=== PATIENT | male | born 1945 | race Caucasian/White ===

== ENCOUNTER 2016-09-29 14:23 | Inpatient (IN) | payer OTHER ==
[~2016-09-29] VITALS: Ht 185.4 cm; Wt 81.6 kg
[~2016-09-29 14:23] MED LIST: PRAVACHOL40 M1 PO; SENSIPAR30 M1 PO
[2016-09-29] MEDS ORDERED: ASPIRIN81 M4 PO (15:15)
[2016-09-29] MEDS ORDERED: NAMENDA XR28 M1 PO (15:16)
[2016-09-29] MEDS ORDERED: SERTRALINE HCL50 MG PO (15:17)
[2016-09-29] MEDS ORDERED: MIRTAZAPINE7.5 M1 PO (15:17)
[2016-09-29] MEDS ORDERED: TRAZODONE HCL50 M1 PO (15:17)
[2016-09-29] MEDS ORDERED: MELATONIN5 M7 PO (15:18)
[2016-09-29] MEDS ORDERED: MEN'S MULTI-VI1 EACH PO (15:18)
--- NOTE | 2016-09-29 15:29 | ED INFLUENZA/URI COMPLAINT ---
History of Present Illness General Chief Complaint: Upper Respiratory Sx/Fever Stated Complaint: ?URI Source: patient, family Exam Limitations: dementia Allergies Coded Allergies: NO KNOWN ALLERGIES (06/05/12) Reconcile Medications Melatonin 5 MG TABLET 1 TAB PO QPM SLEEP (Reported) Memantine HCl (Namenda XR) 28 MG CAP.SPR.24 1 CAP PO DAILY DEMENTIA (Reported ) Mirtazapine 7.5 MG TABLET 1 TAB PO DAILY DEPRESSION (Reported) Multivitamin (Men's Multi-Vitamin) 1 EACH TABLET 1 TAB PO DAILY SUPPLEMENT ( Reported) Sertraline HCl 50 MG TABLET 1 TAB PO DAILY MENTAL HEALTH (Reported) Trazodone HCl 50 MG TABLET 1 TAB PO QPM PRN SLEEP (Reported) Triage Note: 71 Y/O MALE BIBA FROM HOME FOR WORSNING URI AND DIFFICULTY BREATHING. PER DIRECTOR OF CAPITAL GIVING PT HAS HAD INCREASING URI. PT ARRIVES A/OX2 BUT NOTED TO BE VERY DROWSY BUT AROUSABLE. PT ALSO NOTED TO BE ST AT 115, VERY AUDIBLE RHONCHI NOTED BUT DENIES ANY OTHER COMPLAINTS. PT PER DIRECTOR OF CAPITAL GIVING HAS HX OR ALZHIEMERS. PT ALSO HAS A FEVER OF 101.6 Triage Nurses Notes Reviewed? yes HPI: This patient is a 71-year-old male with a past medical history including Alzheimer's disease, colon cancer, and hypertension who was brought into the emergency department today for evaluation of upper respiratory symptoms. The patient was a poor historian given her underlying dementia. He did report that he is having a difficult time breathing and feeling slightly nauseous. The patient's family member reported that over the last week he has had a cold with chest congestion and runny nose. She denied noticing any fevers. However, over the last couple of days his breathing has gotten worse and she reported that he has been complaining of difficulty breathing. He has been febrile today with a nonproductive cough. No vomiting, abdominal pain, diarrhea, or chest pain. (CHINTAN VARGAS,RO) Vital Signs & Intake/Output Vital Signs & Intake/Output Vital Signs Date Time Temp Pulse Resp B/P Pulse O2 O2 Flow FiO2 Ox Delivery Rate 09/30 1452 97.6 97 20 144/84 94 Room Air 09/30 1139 Nasal 2.0L Cannula 09/30 0800 Nasal 2.0L Cannula 09/30 0708 97.1 86 18 148/77 96 Nasal 2.0L Cannula 09/30 0000 Nasal 2.0L Cannula 09/29 2311 Nasal 2.0L Cannula 09/29 2203 96.5 119 20 140/72 97 Nasal 2.0L Cannula 09/29 2012 100.3 103 22 149/71 95 Nasal 2.0L Cannula 09/29 2004 95 Nasal 2.0L Cannula 09/29 1823 100.6 ED Intake and Output 09/30 0000 09/29 1200 Intake Total 1000 Output Total 300 Balance 700 Intake, IV 1000 Output, Urine 300 Patient 180 lb Weight Past History Travel History Traveled to [place] past 21 day No Medical History Any Pertinent Medical History? 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 No (RO WOODSON PA-C) Review of Systems Review of Systems Constitutional: Reports: see HPI. EENTM: Reports: see HPI. Respiratory: Reports: see HPI. Cardiovascular: Reports: no symptoms. GI: Reports: see HPI. Genitourinary: Reports: no symptoms. Musculoskeletal: Reports: no symptoms. Skin: Reports: no symptoms. Neurological/Psychological: Reports: no symptoms. All Other Systems: Reviewed and Negative (RO WOODSON PA-C) Physical Exam Physical Exam Ears, Nose, Throat: moist mucous membrane, hearing grossly normal, pharynx normal, nasal congestion, nasal drainage Comments: Well-developed well-nourished person in mild distress HEENT: Moist mucous membranes, head normocephalic Pupils equally round and reactive to light. Neck: Supple, no lymphadenopathy Back: Normal inspection Cardiovascular: Regular rate and rhythm with no murmurs, rubs or gallops. No carotid bruits appreciated. No JVD Respiratory: Chest nontender. Scattered rhonchi heard throughout all lung yu. Abdomen: Soft, nontender and nondistended. No organomegaly. Normoactive bowel sounds Extremity: No edema, no calf tenderness to palpation, normal and equal pulses. Neuro: Alert and oriented to person, cranial nerves II through XII grossly intact. Skin: No appreciable rash on exposed skin, skin is warm and dry. Psych: Mood and affect is normal Core Measures Severe Sepsis Present: No Septic Shock Present: No (CHINTAN VARGAS,RO) Progress Differential Diagnosis: influenza, meningitis, neutropenia, otitis, pneumonia, pharyngitis, sinusitis Diagnostic Imaging: Viewed by Me: Radiology Read, CT Scan. Discussed w/RAD: Radiology Read, CT Scan. Radiology Impression: PATIENT: ALBINO CHAMPION PRESENT AGE: 71 PATIENT ACCOUNT NO: [id number] : 44 LOCATION: ER ORDERING PHYSICIAN: RO WOODSON PA-C SERVICE DATE: 09/29/16 EXAM TYPE: RAD - XRY-CHEST XRAY, PA AND LATERAL EXAMINATION: XR CHEST CLINICAL INFORMATION: Cough. COMPARISON: Chest x-ray 11/26/2015, 11/20/2014 TECHNIQUE: 2 views of the chest were obtained. FINDINGS: Chronic increased lung markings. There are multiple small nodular opacities over the right upper lobe on the AP view of the chest which are new since prior chest x-ray. No focal consolidation. No pleural effusion. Prominence of the right hilum similar to prior chest x-ray. Heart size is normal. IMPRESSION: Multiple small nodular opacities in the right upper lobe new since prior chest x-ray. CT of chest would be helpful for further assessment. DICTATED BY: JIMMY HOWARD MD DATE/TIME DICTATED:09/29/161603 SERVICES CLERK:FINN DATE/TIME TRANSCRIBED:09/29/161603 CONFIDENTIAL, DO NOT COPY WITHOUT APPROPRIATE AUTHORIZATION. <Electronically signed in Other Vendor System> SIGNED BY: JIMMY HOWARD MD 09/29/161611, PATIENT: ALBINO CHAMPION PRESENT AGE: 71 PATIENT ACCOUNT NO: [id number] : 44 LOCATION: [facility] ORDERING PHYSICIAN: RO WOODSON PA-C SERVICE DATE: 09/29/16 EXAM TYPE: CAT - CTA CHEST-PULMONARY EMBOLISM EXAMINATION: CT ANGIOGRAM OF THE CHEST WITH AND WITHOUT CONTRAST (CT PULMONARY ANGIOGRAM FOR PE) CLINICAL INFORMATION: Cough, congestion, febrile. Abnormal chest x-ray today. COMPARISON: Chest x-ray 09/29/2016. PET/CT 07/12/2006. CT chest 2005. TECHNIQUE: Prior to contrast administration, noncontrast localization images were obtained. Subsequently, multidetector volumetric imaging was performed from the thoracic inlet to below the diaphragms following the administration of 95 mL Optiray 350 intravenous contrast. No contrast reaction reported. Sagittal, coronal, and MIP oblique sagittal reformatted images were obtained on the CT workstation, uploaded to PACS, and reviewed. DLP: 554.78 mGy- cm FINDINGS: QUALITY OF STUDY/CONTRAST BOLUS: Satisfactory. PULMONARY ARTERIES: No central or segmental pulmonary emboli. THORACIC AORTA: No aneurysm or dissection. There are scattered vascular wall calcifications of thoracic aorta. LUNG: There is emphysematous lucency of lungs. This primarily affects the upper lobes left greater than right. There is parenchymal architectural deformity with increased lung markings primarily effecting upper lobes. There is mild swirling of the hilar bronchovascular structures at the upper lobe from this architectural deformity. The nodular opacities noted over the right upper lobe on the chest x-ray today is likely due to indolent vessels from this lung deformity. There is a small focus of consolidation at the medial right upper lobe, axial image 120 (2) that is unchanged since the PET/CT exam of 07/12/2006. This is consistent with an area of scarring. There is a new patchy parenchymal opacity in the peripheral left upper lobe, coronal image 60 (202), axial image 171 (2). This is new since prior CAT scan of 07/12/2006 concerning for a new infiltrate. The patchy peripheral ground-glass opacities primarily in lower lobes bilateral are unchanged since the CAT scan of 07/12/2006. On recent chest x-ray the right mary was asymmetrically prominent. This is related to the normal right hilar vessels and the parenchymal deformity of lung from the emphysematous changes. PLEURA: No pleural effusion or pneumothorax. MEDIASTINUM: Normal heart size. No pericardial effusion. No hilar or mediastinal lymphadenopathy. No evidence of septal bowing or right heart strain. CHEST WALL/AXILLA: No axillary or internal mammary lymphadenopathy. OSSEOUS STRUCTURES: No acute or suspicious osseous abnormality. UPPER ABDOMEN: Unremarkable. No reflux of contrast into the hepatic veins to suggest elevated right heart pressures. There is a 3.4 cm splenule adjacent to the inferior splenic margin. IMPRESSION: 1. No evidence of pulmonary embolism. 2. Marked emphysematous changes of lung with underlying parenchymal architectural deformity primarily affecting the upper lobes. 2. Patchy peripheral opacity in left upper lobe concerning for an acute infiltrate. VTE: Negative. DICTATED BY: JIMMY HOWARD MD DATE/TIME DICTATED:09/29/161746 SERVICES CLERK:FINN DATE/TIME TRANSCRIBED:09/29/161746 CONFIDENTIAL, DO NOT COPY WITHOUT APPROPRIATE AUTHORIZATION. <Electronically signed in Other Vendor System> SIGNED BY: JIMMY HOWARD MD 09/29/16 1828 Initial ED EKG: normal axis, normal intervals, no ST T wave changes, 117 bpm Comments: 09/29/2016 4:49:42 PM: Dr. Lopez currently the patient's bedside for [id number] evaluation. (CHINTAN VARGAS,RO) Plan of Care: Orders Procedure Date/time Status Regular Diet 09/30 B Active Change service to 09/30 1155 Active RT: Evaluation 09/30 1135 Active CBC WITHOUT DIFFERENTIAL 09/30 06 Complete BASIC ELECTROLYTES PLUS BUN&CR 09/30 0600 Complete THERAPIST ORDERS 09/30 UNK Complete OXYGEN SETUP (GEN) 09/30 UNK Complete PT Evaluate & Treat 09/30 UNK Active Therapeutic Activities 09/30 UNK Complete PT EVAL LOW COMPLEX 20 MIN 09/30 UNK Complete Gait Training 09/30 UNK Complete Nursing Misc 09/30 UNK Active URINALYSIS 09/29 2230 Complete Vital Signs 09/29 221 Active Teach/Educate 09/29 2212 Active Pain Treatment and Response 09/29 2212 Active Nutritional Intake, Monitor 09/29 2212 Active Isolation 09/29 2212 Active Intake & Output 09/29 221 Active Patient Care Conference 09/29 221 Active Activity/Ambulation 09/29 2212 Active Saline Lock 09/29 2013 Active Pathway - chart 09/29 2013 Active House Staff 09/29 2013 Active TRC EVALUATION (GEN) 09/29 1946 Complete Admit to inpatient 09/29 191 Active Vital Signs 09/29 191 Active Code Status 09/29 191 Active Patient Data 09/29 1900 Active VIRAL CULTURE 09/29 1530 Active Intake & Output 09/29 1445 Active Current Medications Sig/[place] Start time Last Medication Dose Stop Time Status Admin Albuterol Sulfate 3 ML EVERY 4 HRS/AWAKE 09/30 1200 AC (Proventil) Ondansetron HCl 4 MG ONCE ONE 09/30 299 CAN (Zofran) 09/30 030 Trazodone HCl 50 MG AT BEDTIME NEED.. 09/29 2129 AC (Desyrel) Acetaminophen 650 MG Q6P PRN 09/29 2014 AC (Tylenol) Ketorolac 15 MG Q6P PRN 09/29 2014 AC Tromethamine (Toradol) Morphine Sulfate 2 MG Q4P PRN 09/29 2014 AC (Morphine) Ondansetron HCl 4 MG Q6P PRN 09/29 2014 AC (Zofran) Laboratory Tests 09/30/16 0705: Anion Gap 7, Estimated GFR > 60, BUN/Creatinine Ratio 13.0, CBC w Diff NO MAN DIFF REQ, RBC 4.67 L, MCV 88.4, MCH 29.0, RDW 13.7, MPV 8.5, Gran % 86.6 H, Lymphocytes % 6.8 L, Monocytes % 5.9, Eosinophils % 0.7, Basophils % 0 L, Absolute Granulocytes 12.6 H, Absolute Lymphocytes 1.0 L, Absolute Monocytes 0.9 H, Absolute Eosinophils 0.1, Absolute Basophils 0, PUBS MCHC 32.8 L 09/30/16 0000: Urine Color STRAW, Urine Clarity CLEAR, Urine pH 7.0, Ur Specific [place] 1.010, Urine Protein NEG, Urine Ketones NEG, Urine Nitrite NEG, Urine Bilirubin NEG, Urine Urobilinogen 0.2, Ur Leukocyte Esterase NEG, Ur Microscopic EXAM NOT REQUIRED, Urine Hemoglobin NEG, Urine Glucose NEG 09/29/16 1816: Lactic Acid 0.9 Microbiology 09/29 2229 URINE ROUT: Legionella Antigen - CAN Cancelled: SPECIMEN NOT RECEIVED IN LABORATORY 09/29 2229 URINE ROUT: Streptococcus pneumoniae Antigen (M - CAN Cancelled: SPECIMEN NOT RECEIVED IN LABORATORY 09/29 2229 LOWER RESP: Respiratory Culture - CAN Cancelled: SPECIMEN NOT RECEIVED IN LABORATORY 09/29 2229 LOWER RESP: Gram Stain - CAN Cancelled: SPECIMEN NOT RECEIVED IN LABORATORY 09/29 1838 NASOPHARYN: Influenza Virus A & B Rapid Smear - COMP Departure Departure Disposition: STILL A PATIENT Condition: Stable Clinical Impression Primary Impression: Pneumonia Qualifiers: Pneumonia type: due to unspecified organism Laterality: right Lung location: unspecified part of lung Qualified Code: J18.9 - Pneumonia, unspecified organism Secondary Impressions: Sepsis Qualifiers: Sepsis type: sepsis due to unspecified organism Qualified Code: A41.9 - Sepsis, unspecified organism Referrals: CESAR ARAUJO MD (PCP/Family) Departure Forms: Customer Survey General Discharge Information Admission Note Spoke With: LYUBOV SOLO MD Documentation of Exam: Documentation of any treatments & extenuating circumstances including Concerns Regarding Discharge (functional status, medication knowledge or non-compliance, living conditions, etc.) that warrant an admission rather than observation: [ This patient is a 71-year-old male with past medical history including dementia who presented to the emergency department today for evaluation of upper respiratory symptoms. Left lobe pneumonia seen on CT of the chest. White blood cell count of 18. Lactic acid of 2.8. This patient should be admitted to general medicine for IV fluids, IV antibiotics, pulmonology consultation, trend labs, PT consultation, and close monitoring. Premature discharge could prove medically harmful.] (CHINTAN VARGAS,RO) PA/CLERICAL ASSIGNER Co-Sign Statement Statement: ED Attending supervision documentation- [X] I saw and evaluated the patient. I have also reviewed all the pertinent lab results and diagnostic results. I agree with the findings and the plan of care as documented in the PA's/CLERICAL ASSIGNER's documentation. [] I have reviewed the ED Record and agree with the PA's/CLERICAL ASSIGNER's documentation. [] Additions or exceptions (if any) to the PAs/CLERICAL ASSIGNER's note and plan are summarized below: [] (NEHEMIAH LOPEZ DO)
[2016-09-29 15:30] LABS: ABSOLUTE BASOPHIL COUNT 0.1 /CUMM (0.0-0.2); ABSOLUTE EOSINOPHIL COUNT 0 /CUMM (0.0-0.7); ABSOLUTE GRANULOCYTE CT 16.9 /CUMM (1.4-6.5); ABSOLUTE LYMPH COUNT 0.8 /CUMM (1.2-3.4); ABSOLUTE MONOCYTE COUNT 0.6 /CUMM (0.10-0.60); BASOPHIL % 0.7 % (0.0-2.0); EOSINOPHIL % 0.2 % (0-5); GRANULOCYTE % 91.7 % (42.2-75.2); HEMATOCRIT 46.6 % (42-52); MEAN CORPUSCULAR HGB 29.3 PG (27.0-31.0); MEAN CORPUSCULAR HGB CONC 33.3 G/DL (33.0-37.0); MEAN PLATELET VOLUME 8.4 FL (7.4-10.4); PLATELET COUNT 286 /CUMM (130-400); RBC DISTRIBUTION WIDTH 13.3 % (11.5-14.5); RED BLOOD CELL CT 5.29 /CUMM (4.70-6.10); WHITE BLOOD CELL COUNT 18.5 /CUMM (4.8-10.8)
--- NOTE | 2016-09-29 16:12 | RADIOLOGY REPORT ---
EXAMINATION: XR CHEST CLINICAL INFORMATION: Cough. COMPARISON: Chest x-ray 11/26/2015, 11/20/2014 TECHNIQUE: 2 views of the chest were obtained. FINDINGS: Chronic increased lung markings. There are multiple small nodular opacities over the right upper lobe on the AP view of the chest which are new since prior chest x-ray. No focal consolidation. No pleural effusion. Prominence of the right hilum similar to prior chest x-ray. Heart size is normal. IMPRESSION: Multiple small nodular opacities in the right upper lobe new since prior chest x-ray. CT of chest would be helpful for further assessment.
--- NOTE | 2016-09-29 18:28 | CT SCAN REPORT ---
EXAMINATION: CT ANGIOGRAM OF THE CHEST WITH AND WITHOUT CONTRAST (CT PULMONARY ANGIOGRAM FOR PE) CLINICAL INFORMATION: Cough, congestion, febrile. Abnormal chest x-ray today. COMPARISON: Chest x-ray 09/29/2016. PET/CT 07/12/2006. CT chest 07/14/2006. TECHNIQUE: Prior to contrast administration, noncontrast localization images were obtained. Subsequently, multidetector volumetric imaging was performed from the thoracic inlet to below the diaphragms following the administration of 95 mL Optiray 350 intravenous contrast. No contrast reaction reported. Sagittal, coronal, and MIP oblique sagittal reformatted images were obtained on the CT workstation, uploaded to PACS, and reviewed. DLP: 554.78 mGy-cm FINDINGS: QUALITY OF STUDY/CONTRAST BOLUS: Satisfactory. PULMONARY ARTERIES: No central or segmental pulmonary emboli. THORACIC AORTA: No aneurysm or dissection. There are scattered vascular wall calcifications of thoracic aorta. LUNG: There is emphysematous lucency of lungs. This primarily affects the upper lobes left greater than right. There is parenchymal architectural deformity with increased lung markings primarily effecting upper lobes. There is mild swirling of the hilar bronchovascular structures at the upper lobe from this architectural deformity. The nodular opacities noted over the right upper lobe on the chest x-ray today is likely due to indolent vessels from this lung deformity. There is a small focus of consolidation at the medial right upper lobe, axial image 120 (2) that is unchanged since the PET/CT exam of 07/12/2006. This is consistent with an area of scarring. There is a new patchy parenchymal opacity in the peripheral left upper lobe, coronal image 60 (202), axial image 171 (2). This is new since prior CAT scan of 07/12/2006 concerning for a new infiltrate. The patchy peripheral ground-glass opacities primarily in lower lobes bilateral are unchanged since the CAT scan of 07/12/2006. On recent chest x-ray the right mary was asymmetrically prominent. This is related to the normal right hilar vessels and the parenchymal deformity of lung from the emphysematous changes. PLEURA: No pleural effusion or pneumothorax. MEDIASTINUM: Normal heart size. No pericardial effusion. No hilar or mediastinal lymphadenopathy. No evidence of septal bowing or right heart strain. CHEST WALL/AXILLA: No axillary or internal mammary lymphadenopathy. OSSEOUS STRUCTURES: No acute or suspicious osseous abnormality. UPPER ABDOMEN: Unremarkable. No reflux of contrast into the hepatic veins to suggest elevated right heart pressures. There is a 3.4 cm splenule adjacent to the inferior splenic margin. IMPRESSION: 1. No evidence of pulmonary embolism. 2. Marked emphysematous changes of lung with underlying parenchymal architectural deformity primarily affecting the upper lobes. 2. Patchy peripheral opacity in left upper lobe concerning for an acute infiltrate. VTE: Negative.
--- NOTE | 2016-09-29 20:07 | History & Physical ---
SALMA RADFORD,KRISTIAN 09/29/16 2006: General Information and HPI MD Statement: I have seen and personally examined ALBINO CHAMPION and documented this H&P. The patient is a 71 year old M who presented with a patient stated chief complaint of [shortness of breath]. Source of Information: patient, family, old records, friend Exam Limitations: unable to give history, dementia, poor historian History of Present Illness: This is a 71-year-old male with past medical history significant for Alzheimer's , colon cancer status post resection, erosive gastritis, nonerosive duodenitis, hypertension, who presents with chief complaint of shortness of breath. Of note , patient has significant dementia so much of the history had to be obtained from his live-in partner Ms. Flannery. She states that she noted patient had a "cold, with congestion" for several days. However, she noted that it seemed to be worsening over the past week. She tried ptro-[id number]-[id number] remedies and gissell-steam inhalation but patient did not seem to improve. She stated this morning patient endorsed difficulty breathing and she stated that she could hear rattling while he was breathing which was new and concerning. Additionally, patient seemed to be more altered than his baseline dementia. He was talking to figures not present in the room. Patient unable to give review of system. Partner does endorse that she herself has had recent URI symptoms and is currently having some congestion. No recent travel. Patient has remote history of smoking, unable to quantify at this time. No history of alcohol or drugs. Unsure of his flu shot status. Note that while he has live-in partner, his daughter is POA. 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 IADLs Needs Assist: shopping, housework, finances, food prep, telephone, transportation, medication admin. Review of Systems Review of Systems Constitutional: Reports: no symptoms. Exam & Diagnostic Data Last 24 Hrs of Vital Signs/I&O Vital Signs Date Time Temp Pulse Resp B/P Pulse O2 O2 Flow FiO2 Ox Delivery Rate 09/30 0000 Nasal 2.0L Cannula 09/29 2311 Nasal 2.0L Cannula 09/29 2203 96.5 119 20 140/72 97 Nasal 2.0L Cannula 09/29 2012 100.3 103 22 149/71 95 Nasal 2.0L Cannula 09/29 2004 95 Nasal 2.0L Cannula 09/29 1823 100.6 09/29 1658 100.6 18 149/71 92 09/29 1632 101.3 09/29 1558 101.6 09/29 1450 96 Nasal 2.0L Cannula 09/29 1430 96 Nasal 2.0L Cannula 09/29 1423 101.6 130 22 156/70 92 Room Air Intake & Output 09/30 0800 09/30 0000 09/29 1600 Intake Total 1000 Output Total 750 300 Balance -750 -300 1000 Intake, IV 1000 Output, Urine 750 300 Patient 81.647 kg Weight Physical Exam General Appearance Cooperative, No Acute Distress Skin No Significant Lesion HEENT Atraumatic, PERRLA, EOMI Neck Supple Cardiovascular Regular Rate, Normal S1, Normal S2, No Murmurs Lungs patient had diffuse followedrhonchi and crackles.in all lung yu Abdomen Soft Neurological Normal Speech, Cranial Nerves 3-12 NL, no significant baseline dementia. He was able to follow some commands but also seemed to be responding to questions we were not asking. Extremities No Edema Last 24 Hrs of Labs/Mark: Laboratory Tests 09/30/16 0000: Urine Color STRAW, Urine Clarity CLEAR, Urine pH 7.0, Ur Specific Prospect 1.010, Urine Protein NEG, Urine Ketones NEG, Urine Nitrite NEG, Urine Bilirubin NEG, Urine Urobilinogen 0.2, Ur Leukocyte Esterase NEG, Ur Microscopic EXAM NOT REQUIRED, Urine Hemoglobin NEG, Urine Glucose NEG 09/29/16 1816: Lactic Acid 0.9 09/29/16 1610: pH 7.44, pCO2 33 L, pO2 84, HCO3 22, ABG O2 Sat (Measured) 94.0 L, P-50 (Temp Corrected) Y, Carboxyhemoglobin 1.2 L, O2 Concentration % 2L, Temperature 101.6 H, O2 Delivery Method NC, Phlebotomy Draw Site RIGHT BRACHIAL 09/29/16 1500: Anion Gap 13, Estimated GFR > 60, BUN/Creatinine Ratio 15.5, Glucose 141 H, Lactic Acid 2.8 H, Calcium 10.5 H, Magnesium 2.0, Total Bilirubin 0.9, AST 32, ALT 40, Alkaline Phosphatase 76, Troponin I < 0.01, Total Protein 7.6, Albumin 4.2, Globulin 3.4, Albumin/Globulin Ratio 1.2, CBC w Diff MAN DIFF ORDERED, RBC 5.29, MCV 88.0, MCH 29.3, RDW 13.3, MPV 8.4, Gran % 91.7 H, Lymphocytes % 4.3 L, Monocytes % 3.1, Eosinophils % 0.2, Basophils % 0.7, Absolute Granulocytes 16.9 H, Segmented Neutrophils 84 H, Band Neutrophils 6 H, Absolute Lymphocytes 0.8 L, Lymphocytes 4 L, Monocytes 6, Absolute Monocytes 0.6, Absolute Eosinophils 0, Absolute Basophils 0.1, Platelet Estimate VERIFIED BY SMEAR, Normocytic RBCs VERIFIED, Normochromic RBCs VERIFIED, PUBS MCHC 33.3 Microbiology 09/29 2229 URINE ROUT: Legionella Antigen - COLB 09/29 2229 URINE ROUT: Streptococcus pneumoniae Antigen (M - COLB 09/29 2229 LOWER RESP: Respiratory Culture - COLB 09/29 2229 LOWER RESP: Gram Stain - COLB 09/29 1838 NASOPHARYN: Influenza Virus A & B Rapid Smear - COMP 09/29 1558 BLOOD: Blood Culture - RECD 09/29 1500 BLOOD: Blood Culture - RECD Assessment/Plan Assessment: This is a 71-year-old male with past medical history significant for Alzheimer's , colon cancer, hypertension who presents with chief complaint of shortness of breath. ED workup shows: Vitals: 101, 130, 22, 156/70, 92. ABG showed: PH 7.44, PCO2 33, O2 84, bicarbonate 22 CBC showed white count 18.5, hemoglobin 15.5, hematocrit 46.6, platelet 286 BEP within normal limits, lactic acid first 2.8 then trended down. Calcium 10.5. X-ray shows left upper lobe infiltrate and nodular opacities in the right upper lobe. Plan shortness of breath: Patient has new infiltrate, fever 101.6, and white count 18.6; all suggestive of pneumonia. He is a community dweller with recent sick contacts. * IV fluids at 150 * Sitter given his dementia * Ceftriaxone and azithromycin * Sputum culture * Blood culture * Influenza test Dementia: Chronic and stable. Continue home meds * Namenda * Mirtazapine * Trazodone * Melatonin * Sertraline Full code Regular diet Clinical dvt prophylaxis As Ranked By This Provider Problem List: 1. Altered mental status 2. Pneumonia Qualifiers Pneumonia type: due to unspecified organism Laterality: right Lung location: unspecified part of lung Qualified Code: J18.9 - Pneumonia, unspecified organism 3. Sepsis Qualifiers Sepsis type: sepsis due to unspecified organism Qualified Code: A41.9 - Sepsis, unspecified organism Core Measures/Miscellaneous Acute Coronary Syndrome ACS Diagnosis: No Cerebrovascular Accident CVA/TIA Diagnosis: No Congestive Heart Failure CHF Diagnosis: No Venous Thromboembolism VTE Risk Factors: Age > 40 No [facility] VTE prophylaxis d/t: No contraindications No VTE Pharm Prophylaxis d/t: No contraindications VTE Diagnosis: No VTE Type: NONE VTE Confirmed by (Test): NONE Severe Sepsis Severe Sepsis Present: No Septic Shock Septic Shock Present: No Miscellaneous Documentation Attending Case Discussed With: LYUBOV SOLO MD Primary Care Physician: CESAR ARAUJO MD Patient sees these Specialists unknown Level of Patient Care: General Medicine JAIMA RADFORD,[facility] 09/29/16 2231: General Information and HPI Allergies/Medications Home Med list Melatonin 5 MG TABLET 1 TAB PO QPM SLEEP (Reported) Memantine HCl (Namenda XR) 28 MG CAP.SPR.24 1 CAP PO DAILY DEMENTIA (Reported ) Mirtazapine 7.5 MG TABLET 1 TAB PO DAILY DEPRESSION (Reported) Multivitamin (Men's Multi-Vitamin) 1 EACH TABLET 1 TAB PO DAILY SUPPLEMENT ( Reported) Sertraline HCl 50 MG TABLET 1 TAB PO DAILY MENTAL HEALTH (Reported) Trazodone HCl 50 MG TABLET 1 TAB PO QPM PRN SLEEP (Reported) Resident Review Statement Resident Statement: examined this patient, discussed with internal corrosion specialist, agreed with internal corrosion specialist, discussed with family, reviewed EMR data (avail), discussed with nursing , discussed with case mgmt, reviewed images, amended to note Other Findings: Albino is a 71-year-old demented man with history of Alzheimer's disease, colorectal cancer hypertension who presents after expressing subjective fevers, and a temperature at home, progressive lethargy/drowsiness dyspnea with intermittent nausea. Symptoms of cold 1 week, nonproductive cough and rhinorrhea as reported by cap parts cutter who lives with him. The patient himself can 't offer any meaningful history. No hx of aspiration. Eats regular diet. At present temperatures 100.6F, MAXIMUM TEMPERATURE 101.6F, heart rate 130, blood pressure 149/71. He is on 92% oxygen saturation with 2 L via nasal cannula. Physical examination is notable for scattered crackles wheeze and rhonchi. Labs notable for white count of 18,000 with 6% bands. Initial lactate was 2.8 which came down to 0.9 with fluids. ABG findings noted, respiratory alkalosis. Negative rapid influenza test. Chest x-ray shows new small nodular opacities, CT of the chest was performed to further delineate aforementioned opacities. There appears to be a left upper lobe opacity suspicious for infiltrate, emphysematous changes noted. Suspect this patient has community-acquired pneumonia. - Problems - Community acquired pneumonia Alzheimer's disease HTN - Plan - Empiric abx Ceftriaxone/Azithromycin iv Await blood/sputum cx, urine ag legionella & s.pneumo NS @ 125ml/hr Supportive tx Tessalon cap Tylenol prn DVT ppx lovenox LYUBOV SOLO 09/30/16 0126: Attending MD Review Statement Attending Statement Attending MD Statement: examined this patient, discuss w/resident/PA/EDGE STAINER MACHINE, agreed w/resident/PA/EDGE STAINER MACHINE, discussed with family, reviewed EMR data (avail), reviewed images, amended to note Attending Assessment/Plan: C: URI s/s followed by severe cough and worsening breathing PMHx : Dementia, colon cancer History is obtained from girlfriend bedside. Patient is unable to provide history secondary to dementia. She states that patient has been having upper respiratory symptoms cold and congestion since last 1 week with a runny nose, last 2 days his respiration became worse, worsened cough, nonproductive. Patient was not complaining of any chest pain or abdominal pain, nausea, vomiting to her. All 3 members in the family are sick with similar URI symptoms. According to her patient has been getting progressively worse and last few months, behavioral changes, shouting at times, hallucinations. Patient endorses some left-sided chest pain and difficulty breathing. No recent hospitalization, antibiotic use, no leg swellings. Patient is ex-smoker did not smoke in last 30 years. Vitals: T max 101.6, tachycardic in 130s, tachypneic with RR 22, blood pressure 156/70, requiring 2 L to saturate at 96%. On examination: Alert, not oriented, does not respond appropriately, follows instructions, neck supple, no JVD, no lymphadenopathy, mucosa dry, RS: Diffuse coarse breathing sounds bilaterally. CVS: S1-S2, RRR. Abdomen: Soft, NT, ND, bowel sounds present. No dependent edema. No obvious skin rashes or inflammations, no obvious focal neurological deficit. Extremities are warm to touch, Peripheral pulses, perfusion normal. Labs: WBC 18.5, hemoglobin 15.5, neutrophils 91%, calcium 10.5, lactate at presentation 2.8 trended down to 0.9, troponin negative, LFT unremarkable, UA clear ABG 7.44/33/84/22 on 2 L NC CXR: Multiple small nodular opacities in the right upper lobe new since prior chest x-ray. CT of chest would be helpful for further assessment. CTA chest: 1. No evidence of pulmonary embolism. 2. Marked emphysematous changes of lung with underlying parenchymal architectural deformity primarily affecting the upper lobes. 2. Patchy peripheral opacity in left upper lobe concerning for an acute infiltrate. A and P #1 acute hypoxic respiratory failure secondary to community-acquired pneumonia #2 community-acquired pneumonia, followed by URI infection, influenza negative in ER. Febrile, tachycardic, tachypneic, leukocytosis. Coarse breathing sounds bilaterally. Requiring 2 L O2 by NC. - Received 3 L NS in ER, - Continue IV illness at 150 mL per hour - IV ceftriaxone, azithromycin - TRC, prn Albuterol nebs - Sputum culture, blood culture, urine Legionella - If persistently febrile and nonresponse to current treatment consider influenza PCR. - Scheduled Mucinex X 100 mg by mouth twice a day #3 dementia Patient may have delirium in hospital, one-on-one sitter, obtain EKG for QTc interval, when necessary Haldol if required accordingly.
[2016-09-29 22:03] VITALS: BP 140/72
--- NOTE | 2016-09-30 01:28 | Admission Certification ---
Admission Certification Certification Statement - As attending physician, I certify that at the time of - admission, based on clinical presentation, severity of - symptoms, need for further diagnostic testing and - therapeutic interventions, and risk of adverse outcomes - without in-hospital treatment, in my clinical assessment, - this patient requires an acute hospital stay for a minimum - of two nights or longer. I have also considered psychsocial - factors such as support system, advanced age, financial - issues, cognitive issues, and failed out-patient treatments, - past re-admission history, safety of patient, and lack of - compliance as applicable. Specific rationale supporting this admission is: Community-acquired pneumonia
[2016-09-30 07:08] VITALS: BP 148/77
--- NOTE | 2016-09-30 07:18 | PN- Housestaff ---
SHANIQUA RADFORD,[facility] 09/30/16 0717: Subjective Follow-up For: Community-acquired pneumonia Sepsis Subjective: Patient was seen and examined this morning, patient has history of Alzheimer's disease, oriented to self only. He reported cough but didn't know if he has any sputum or not, denied any pain. Nurse reported nonproductive cough, patient remained afebrile, no overnight events reported by the nurse. Review of Systems Constitutional: Reports: see HPI. Objective Last 24 Hrs of Vital Signs/I&O Vital Signs Date Time Temp Pulse Resp B/P Pulse O2 O2 Flow FiO2 Ox Delivery Rate 09/30 1452 97.6 97 20 144/84 94 Room Air 09/30 1139 Nasal 2.0L Cannula 09/30 0800 Nasal 2.0L Cannula 09/30 0708 97.1 86 18 148/77 96 Nasal 2.0L Cannula 09/30 0000 Nasal 2.0L Cannula 09/29 2311 Nasal 2.0L Cannula 09/29 2203 96.5 119 20 140/72 97 Nasal 2.0L Cannula 09/29 2012 100.3 103 22 149/71 95 Nasal 2.0L Cannula 09/29 2004 95 Nasal 2.0L Cannula 09/29 1823 100.6 Intake & Output 09/30 1600 09/30 0800 09/30 0000 Intake Total 1050 1000 Output Total 300 750 300 Balance 750 250 -300 Intake, IV 700 1000 Intake, Oral 350 Output, Urine 300 750 300 Physical Exam General Appearance: Alert, Cooperative, No Acute Distress Skin: No Rashes, No Breakdown, No Significant Lesion HEENT: Atraumatic, PERRLA, EOMI, Mucous Membr. moist/pink Neck: Supple Cardiovascular: Regular Rate, Normal S1, Normal S2, No Murmurs Lungs: diffuse rhonchi Abdomen: Normal Bowel Sounds, Soft, No Tenderness Neurological: Normal Speech, Strength at 5/5 X4 Ext, Normal Tone, Sensation Intact, Cranial Nerves 3-12 NL, Reflexes 2+ Extremities: No Clubbing, No Cyanosis, No Edema, Normal Pulses Assessment/Plan Assessment: Mr. Dawkins is 71-year-old male with past medical history significant for Alzheimer's, colon cancer, hypertension who presents with chief complaint of shortness of breath. ED workup shows: Vitals: 101, 130, 22, 156/70, 92. ABG showed: PH 7.44, PCO2 33, O2 84, bicarbonate 22 CBC showed white count 18.5, hemoglobin 15.5, hematocrit 46.6, platelet 286 BEP within normal limits, lactic acid first 2.8 then trended down. Calcium 10.5. X-ray shows left upper lobe infiltrate and nodular opacities in the right upper lobe. Plan #Community-acquired pneumonia -Patient presented with fever, cough -Patient met criteria for sepsis (temperature of 101.6, WBC 18.6, tachycardia, tachypnea) with focus of infection lung -Lactic acid on admission 2.8, trended down to 0.9 -CBC improved from 18.5-14.5 -ABG on admission within normal -Patient received fluid resuscitation of 150 decreased to 75 mL/h -Continue ceftriaxone and erythromycin IV Day # 2 -Continue TRC -Continue Mucinex -Flu rapid test negative -Blood culture negative so far -Respiratory culture pending receipt #Dementia: -Continue home medication Namenda, Mirtazapine, Trazodone, Melatonin, Sertraline Full code Regular diet DVT prophylaxis Lovenox PT evaluation discharge home Problem List: 1. Pneumonia 2. Sepsis Pain Ratin Pain Location: None Pain Goal: Pain 4 or less Pain Plan: Mild pain pathway Tomorrow's Labs & Rationales: CBC CUCA BUENO MD 09/30/16 4417: Attending MD Review Statement Attending Statement Attending MD Statement: examined this patient, discuss w/resident/PA/VULCANIZER OPERATOR, agreed w/resident/PA/VULCANIZER OPERATOR, reviewed EMR data (avail), discussed with nursing, discussed with case mgmt, amended to note Attending Assessment/Plan: The patient was seen and discussed with house staff. Agree with the plan of care as outlined.
[2016-09-30 08:24] LABS: ABSOLUTE BASOPHIL COUNT 0 /CUMM (0.0-0.2); ABSOLUTE EOSINOPHIL COUNT 0.1 /CUMM (0.0-0.7); ABSOLUTE MONOCYTE COUNT 0.9 /CUMM (0.10-0.60); WHITE BLOOD CELL COUNT 14.5 /CUMM (4.8-10.8)
[2016-09-30 09:01] LABS: ABSOLUTE GRANULOCYTE CT 12.6 /CUMM (1.4-6.5); BASOPHIL % 0 % (0.0-2.0); EOSINOPHIL % 0.7 % (0-5); MEAN CORPUSCULAR HGB CONC 32.8 G/DL (33.0-37.0); MEAN CORPUSCULAR VOLUME 88.4 FL (80.0-94.0); MEAN PLATELET VOLUME 8.5 FL (7.4-10.4); PLATELET COUNT 233 /CUMM (130-400); RBC DISTRIBUTION WIDTH 13.7 % (11.5-14.5); RED BLOOD CELL CT 4.67 /CUMM (4.70-6.10)
[2016-09-30 09:22] LABS: HEMATOCRIT 41.3 % (42-52)
[2016-09-30 09:46] LABS: GRANULOCYTE % 86.6 % (42.2-75.2)
[2016-09-30 14:52] VITALS: BP 144/84
[2016-09-30 23:13] VITALS: BP 190/98
[2016-10-01 00:35] VITALS: BP 130/68
[2016-10-01 06:32] VITALS: BP 151/74
--- NOTE | 2016-10-01 07:30 | PN- Housestaff ---
SHANIQUA RADFORD,[facility] 10/01/16 0730: Subjective Follow-up For: Community-acquired pneumonia Sepsis Subjective: Patient was seen and examined this morning, he was in deep sleep, not responsive to painful stimulus. Patient vital signs are stable blood pressure 164/80, pulse 96, nasal cannula 2 L saturation 94%, glucometer 100. Rapid response was called. (Please see event note) Later in the day patient was evaluated, he was lying comfortably on bed responding appropriately to verbal command with nice social smile, patient denied any pain, shortness of breath. Swallowing evaluation was ordered. Review of Systems Constitutional: Reports: see HPI. Objective Last 24 Hrs of Vital Signs/I&O Vital Signs Date Time Temp Pulse Resp B/P Pulse O2 O2 Flow FiO2 Ox Delivery Rate 10/01 1028 95 Nasal 2.0L Cannula 10/01 0632 98.9 80 20 151/74 94 Nasal 2.0L Cannula 10/01 0035 99 130/68 10/01 0000 Nasal 2.0L Cannula 09/30 2313 124 24 190/98 94 Nasal 2.0L Cannula 09/30 1730 95 Nasal 2.0L Cannula 09/30 1600 Nasal 2.0L Cannula 09/30 1452 97.6 97 20 144/84 94 Room Air Intake & Output 10/01 1600 10/01 0800 10/01 0000 Intake Total 600 1400 Output Total 500 Balance 600 900 Intake, IV 600 600 Intake, Oral 800 Output, Urine 500 Physical Exam General Appearance: Alert, Cooperative, No Acute Distress HEENT: Atraumatic, PERRLA, EOMI, Mucous Membr. moist/pink Neck: Supple Cardiovascular: Regular Rate, Normal S1, Normal S2, No Murmurs Lungs: Clear to Auscultation, Normal Air Movement Abdomen: Normal Bowel Sounds, Soft, No Tenderness Neurological: Normal Speech, Strength at 5/5 X4 Ext, Normal Tone, Sensation Intact, Cranial Nerves 3-12 NL, Reflexes 2+ Extremities: No Clubbing, No Cyanosis, No Edema, Normal Pulses Assessment/Plan Assessment: Mr. Dawkins is 71-year-old male with past medical history significant for Alzheimer's, colon cancer, hypertension who presents with chief complaint of shortness of breath. Chest x-ray 09/29/16 IMPRESSION: Multiple small nodular opacities in the right upper lobe new since prior chest x-ray. CT of chest would be helpful for further assessment. CTA 09/29/16 IMPRESSION: 1. No evidence of pulmonary embolism. 2. Marked emphysematous changes of lung with underlying parenchymal architectural deformity primarily affecting the upper lobes. 2. Patchy peripheral opacity in left upper lobe concerning for an acute infiltrate. CT head 10/01/16 IMPRESSION: There are scattered chronic small vessel ischemic changes within the periventricular white matter. No evidence of acute territorial infarct or hemorrhage. Sphenoid sinus disease. Chest CT 10/01/16 IMPRESSION: Diffuse emphysematous changes of both lungs with bullous findings in both upper lobe worse in the left. Chronic condition lung changes are seen bilaterally laterally. There is a left lower lobe and left upper lobe airspace/pneumonic consolidation which appear new. Bilateral perihilar patchy opacities are stable. Plan #Rapid response -Rapid response was called this morning -Patient was unresponsive however his vital signs remained stable and blood glucose level within normal -CT head and CT chest was obtained reveled new airspace consolidation of left lower lobe -EKG, troponin, ABG are within normal -Patient received 1 dose of Seroquel 25 mg last night upon agitation, mostly this linked to the unresponsiveness this morning -Patient was given 0.4 mg IV Narcan -Avoid Seroquel and other benzodiazepines in case of agitation -Patient was evaluated later in the day, he is alert and appropriately responsive to simple commands #Community-acquired pneumonia -Patient presented with fever, cough -Patient met criteria for sepsis (temperature of 101.6, WBC 18.6, tachycardia, tachypnea) with focus of infection lung -Lactic acid on admission 2.8, trended down to 0.9 -CBC improved from 18.5 to 14.5 -ABG on admission within normal -Patient received IVF -Continue ceftriaxone and erythromycin IV Day # 3 -Continue TRC -Continue Mucinex -Flu rapid test negative -Blood culture negative so far -Respiratory culture pending -We'll obtain swallowing evaluation to rule out aspiration pneumonia given new finding on CT scan #Dementia: -Continue home medication Namenda, Mirtazapine, Melatonin, Sertraline -Decrease trazodone to 12.5 mg at bedtime Full code Regular diet DVT prophylaxis Lovenox PT evaluation discharge home Problem List: 1. Pneumonia 2. Sepsis Pain Ratin Pain Location: None Pain Goal: Pain 4 or less Pain Plan: Mild pain pathway Tomorrow's Labs & Rationales: CBC, CMP MYLES RADFORD,[facility] 10/01/16 2142: Attending MD Review Statement Attending Statement Attending MD Statement: examined this patient, discuss w/resident/PA/TOMBSTONE CARVER, agreed w/resident/PA/TOMBSTONE CARVER, discussed with family, reviewed EMR data (avail), discussed with nursing, discussed with case mgmt, reviewed images, amended to note Attending Assessment/Plan: The patient was seen and discussed with house staff. Episode of somnolence this morning was secondary to Seroquel.
[2016-10-01 08:45] LABS: ABSOLUTE BASOPHIL COUNT 0 /CUMM (0.0-0.2); ABSOLUTE EOSINOPHIL COUNT 0.3 /CUMM (0.0-0.7); ABSOLUTE GRANULOCYTE CT 7.9 /CUMM (1.4-6.5); ABSOLUTE LYMPH COUNT 1.4 /CUMM (1.2-3.4); ABSOLUTE MONOCYTE COUNT 0.9 /CUMM (0.10-0.60); BASOPHIL % 0.3 % (0.0-2.0); EOSINOPHIL % 2.6 % (0-5); GRANULOCYTE % 75.2 % (42.2-75.2); HEMATOCRIT 39.7 % (42-52); MEAN CORPUSCULAR HGB 29.5 PG (27.0-31.0); MEAN CORPUSCULAR HGB CONC 33.3 G/DL (33.0-37.0); MEAN CORPUSCULAR VOLUME 88.4 FL (80.0-94.0); MEAN PLATELET VOLUME 8.4 FL (7.4-10.4); PLATELET COUNT 242 /CUMM (130-400); RBC DISTRIBUTION WIDTH 13.6 % (11.5-14.5); RED BLOOD CELL CT 4.49 /CUMM (4.70-6.10); WHITE BLOOD CELL COUNT 10.5 /CUMM (4.8-10.8)
--- NOTE | 2016-10-01 09:06 | Event Note ---
Event Note Event Note: At 8:45 AM, I came to bedside to interview and examined the patient, he was in deep sleep and didn't respond to verbal stimulus, I called the nurse that reported patient was agitated last night and received 25 mg of Seroquel at 10 PM , patient was sleeping since then. Patient was not responding to verbal or painful stimulus, vital signs were stable blood pressure 164/80, pulse 96, nasal cannula 2 L saturation 94%, glucometer 100. Physical examination CVS S1-S2 no murmur Chest normal bilateral air entry no added sound Abdomen soft positive bowel sounds no tenderness No lower leg edema Neurology normal reflexes, bilateral reactive pupils Resident was made aware. Patient was given 0.4 of IV Narcan, still not responding to verbal or painful stimulus, subsequently rapid response was called. -CT head didn't reveal any acute pathology and CT chest reveled new airspace consolidation of left lower lobe -EKG, troponin, ABG are within normal -Patient was evaluated later in the day, he is alert and appropriately responsive to simple commands.
--- NOTE | 2016-10-01 09:41 | CT SCAN REPORT ---
EXAMINATION: CT HEAD WITHOUT CONTRAST CLINICAL INFORMATION: Rapid response called. Patient unresponsive. COMPARISON: CTA head 11/20/2014. TECHNIQUE: Contiguous axial imaging was performed from the skull base to vertex without intravenous administration of contrast. DLP: 529.16 mGy-cm FINDINGS: There is no acute intracranial hemorrhage or abnormal extra axial collection. No intracranial mass effect or midline shift. Lateral and third ventricles are normal. No hydrocephalus. A few scattered chronic small vessel ischemic changes are visualized within the periventricular white matter. Pereyra-white matter differentiation is grossly preserved and there is no evidence of acute territorial infarct. The calvarium and skull base are intact. Mastoid air cells and middle ear cavities are well-aerated. There is near total opacification of the right sphenoid chamber. IMPRESSION: There are scattered chronic small vessel ischemic changes within the periventricular white matter. No evidence of acute territorial infarct or hemorrhage. Sphenoid sinus disease.
--- NOTE | 2016-10-01 09:59 | CT SCAN REPORT ---
EXAMINATION: CT CHEST WITHOUT CONTRAST CLINICAL INFORMATION: Dyspnea. COMPARISON: CTA chest 09/29/2016. TECHNIQUE: Multidetector volumetric CT imaging of the chest was done. Axial MIP volume rendering provided. Sagittal and coronal reformatted images were obtained. DLP: 530 mGy-cm FINDINGS: LUNGS: There is diffuse emphysematous changes of both lungs with bullous changes in the left upper lobe and right lung apex. Significant coarse increased interstitial markings are visualized in both lungs consistent with chronic interstitial lung disease. There is airspace disease consistent with large consolidations in left upper lobe and left lower lobe new since the previous study. There is bilateral perihilar infiltrates which appears stable. MEDIASTINUM: Heart size and the great vessels are normal caliber. The central trachea and the bronchi are patent. There are calcified subcarinal lymph nodes. No abnormal size mediastinal lymph nodes seen. PLEURA: There are bilateral small pleural effusions. No pleural thickening or calcification seen. AXILLA: No lymphadenopathy. UPPER ABDOMEN: Visualized liver, spleen, pancreas and bilateral adrenal glands are unremarkable. No radiopaque gallstones seen. There is punctate calcification in the central liver. OSSEOUS STRUCTURES: Bone windows reveal no lytic or sclerotic process seen. Moderate spondylosis mid dorsal spine. IMPRESSION: Diffuse emphysematous changes of both lungs with bullous findings in both upper lobe worse in the left. Chronic condition lung changes are seen bilaterally laterally. There is a left lower lobe and left upper lobe airspace/pneumonic consolidation which appear new. Bilateral perihilar patchy opacities are stable.
[2016-10-01 15:27] VITALS: BP 154/87
[2016-10-01 23:38] VITALS: BP 138/72
[2016-10-02 07:34] VITALS: BP 160/84
[2016-10-02 08:24] LABS: ABSOLUTE BASOPHIL COUNT 0 /CUMM (0.0-0.2); ABSOLUTE EOSINOPHIL COUNT 0.3 /CUMM (0.0-0.7); ABSOLUTE GRANULOCYTE CT 8.8 /CUMM (1.4-6.5); ABSOLUTE LYMPH COUNT 1.1 /CUMM (1.2-3.4); ABSOLUTE MONOCYTE COUNT 1.1 /CUMM (0.10-0.60); BASOPHIL % 0.4 % (0.0-2.0); EOSINOPHIL % 2.5 % (0-5); GRANULOCYTE % 77.8 % (42.2-75.2); HEMATOCRIT 41.2 % (42-52); MEAN CORPUSCULAR HGB 29.2 PG (27.0-31.0); MEAN CORPUSCULAR VOLUME 88.5 FL (80.0-94.0); MEAN PLATELET VOLUME 8.2 FL (7.4-10.4); PLATELET COUNT 278 /CUMM (130-400); RBC DISTRIBUTION WIDTH 13.6 % (11.5-14.5); RED BLOOD CELL CT 4.65 /CUMM (4.70-6.10); WHITE BLOOD CELL COUNT 11.3 /CUMM (4.8-10.8)
--- NOTE | 2016-10-02 08:24 | PN- Housestaff ---
PINKY RADFORD,VALDO 10/02/16 0823: Subjective Follow-up For: Community-acquired pneumonia Sepsis Subjective: Patient seen and examined. He is seen lying upright in bed resting comfortably. He appears to be in no acute distress. He is very somnolent and not very cooperative with interview or examination. When asked if he has any pain or complaints he mumbles and makes gestures with his hands. He appears confused and specific collateral information is difficult to obtain. Review of systems is unobtainable. No overnight events reported. Review of Systems Constitutional: Reports: see HPI. Objective Last 24 Hrs of Vital Signs/I&O Vital Signs Date Time Temp Pulse Resp B/P Pulse O2 O2 Flow FiO2 Ox Delivery Rate 10/02 1150 94 Room Air Room Air 10/02 0800 94 Room Air 10/02 0734 98.1 78 20 160/84 96 10/02 0000 95 Nasal 2.0L Cannula 10/01 2338 100.3 119 20 138/72 93 Nasal Cannula 10/01 1830 122 10/01 1615 96 Nasal 2.0L Cannula 10/01 1600 Nasal 2.0L Cannula 10/01 1527 98.2 110 20 154/87 95 Nasal 2.0L Cannula Intake & Output 10/02 1600 10/02 0800 10/02 0000 Intake Total 120 640 Output Total Balance 120 640 Intake, Oral 120 640 Physical Exam General Appearance: Alert, No Acute Distress Other Physical Findings: General -well-developed, well-nourished elderly man in no acute distress HEENT - NCAT, PERRL, EOMI, anicteric sclera CVS - S1, S2 w/o m/g/r Resp - CTA bilaterally w/o wheezing/rhonchi/crackles GI - Soft, nontender, nondistended, bowel sounds intact Neuro -somnolent, lethargic, agitated, no obvious focal neurologic deficits, cranial nerves II through XII grossly intact Ext - normal pulses, no cyanosis/clubbing/edema Current Medications: Current Medications Sig/[place] Start time Last Medication Dose Route Stop Time Status Admin Acetaminophen 650 MG Q6P PRN 09/29 2014 AC PO Albuterol Sulfate 3 ML EVERY 4 HRS/AWAKE 09/30 1200 AC 10/02 INH 1148 Artificial Tears 2 GTT TID 10/01 1600 AC 10/02 OPH 1059 Azithromycin 500 MG DAILY 09/30 1000 AC 10/02 Dextrose/Water 250 ML IV 1105 Ceftriaxone Sodium 1,000 MG DAILY 09/30 1000 AC 10/02 IV 1059 Dextrose/Sodium 1,000 ML Q10H 10/01 1000 DC 10/01 Chloride IV 1001 Enoxaparin Sodium 40 MG DAILY 09/30 1000 AC 10/02 SC 1059 Guaifenesin 600 MG Q12 09/30 1000 AC 10/02 PO 1058 Ipratropium [place] 2.5 ML EVERY 4 HRS/AWAKE 09/30 1200 AC 10/02 INH 1148 Ketorolac 15 MG Q6P PRN 09/29 2014 AC Tromethamine IV Melatonin 5 MG QPM 09/29 220 AC 10/01 PO 2122 Memantine 10 MG BID 09/29 2199 AC 10/02 PO 1059 Mirtazapine 7.5 MG AT BEDTIME 10/01 220 AC 10/01 PO 2122 Morphine Sulfate 2 MG Q4P PRN 09/29 2014 AC IV Naproxen 500 MG BID 10/01 2200 AC 10/02 PO 1059 Ondansetron HCl 4 MG Q6P PRN 09/29 2014 AC IV Senna/Docusate Sodium 1 TAB AT BEDTIME 09/29 2199 AC 10/01 PO 2122 Sertraline HCl 50 MG DAILY 09/30 1000 AC 10/02 PO 1059 Trazodone HCl 12.5 MG AT BEDTIME NEED.. 10/01 1345 AC PO Last 24 Hrs of Lab/Mark Results Last 24 Hrs of Labs/Mics: Laboratory Tests 10/02/16 0635: Anion Gap 9, Estimated GFR > 60, BUN/Creatinine Ratio 12.7, CBC w Diff NO MAN DIFF REQ, RBC 4.65 L, MCV 88.5, MCH 29.2, RDW 13.6, MPV 8.2, Gran % 77.8 H, Lymphocytes % 10.0 L, Monocytes % 9.3, Eosinophils % 2.5, Basophils % 0.4, Absolute Granulocytes 8.8 H, Absolute Lymphocytes 1.1 L, Absolute Monocytes 1.1 H, Absolute Eosinophils 0.3, Absolute Basophils 0, PUBS MCHC 33.0 Assessment/Plan Assessment: Overnight patient had temperature of 100.3 with heart rate 119 and elevated blood pressure to 160/84 and was saturating well on room air. This morning patient's vital signs are within normal limits. Labs are significant for mild leukocytosis with otherwise normal serum chemistries. Patient appears somnolent /lethargic and is agitated when asked questions about how he is doing. He is continued on intravenous antibiotics. Problem list: -Community-acquired pneumonia, on antibiotics -Sepsis, improving -Alzheimer's dementia Plan: -General medicine -TRC with albuterol/ipratropium when necessary -Supplemental oxygen, goal >92%, wean as tolerated -Azithromycin 500 mg IV daily -Ceftriaxone 1 g IV daily -Guaifenesin 600 mg by mouth every 12 hours -Avoid Seroquel/benzodiazepines -Continue home medications -Follow-up cultures and sensitivities -Physical therapy evaluation -Regular diet -DVT prophylaxis -Full code Problem List: 1. Pneumonia Pain Ratin Pain Location: None Pain Goal: Remain pain free Pain Plan: As noted in plan Tomorrow's Labs & Rationales: CBC-pneumonia CUCA BUENO MD 10/02/16 1630: Attending MD Review Statement Attending Statement Attending MD Statement: examined this patient, discuss w/resident/PA/KEY RINGER, agreed w/resident/PA/KEY RINGER, reviewed EMR data (avail), discussed with nursing, amended to note Attending Assessment/Plan: The patient was seen. Somewhat difficult to awake early in morning, however better in afternoon. Had low grade fever. Will observe today and possible discharge tomorrow if stable. Ambulate on Naprosyn (gout flare noted).
[2016-10-02 14:36] VITALS: BP 142/78
[2016-10-02 22:10] VITALS: BP 178/80
[2016-10-02 23:15] VITALS: BP 162/74
[2016-10-03 06:39] VITALS: BP 146/80
[2016-10-03 08:10] LABS: ABSOLUTE BASOPHIL COUNT 0.1 /CUMM (0.0-0.2); ABSOLUTE EOSINOPHIL COUNT 0.4 /CUMM (0.0-0.7); ABSOLUTE GRANULOCYTE CT 10.9 /CUMM (1.4-6.5); ABSOLUTE LYMPH COUNT 1.1 /CUMM (1.2-3.4); ABSOLUTE MONOCYTE COUNT 0.7 /CUMM (0.10-0.60); BASOPHIL % 0.5 % (0.0-2.0); EOSINOPHIL % 2.9 % (0-5); HEMATOCRIT 43.8 % (42-52); MEAN CORPUSCULAR HGB 29.4 PG (27.0-31.0); MEAN CORPUSCULAR HGB CONC 33.3 G/DL (33.0-37.0); MEAN CORPUSCULAR VOLUME 88.1 FL (80.0-94.0); MEAN PLATELET VOLUME 8.4 FL (7.4-10.4); PLATELET COUNT 308 /CUMM (130-400); RBC DISTRIBUTION WIDTH 13.7 % (11.5-14.5); RED BLOOD CELL CT 4.97 /CUMM (4.70-6.10); WHITE BLOOD CELL COUNT 13.2 /CUMM (4.8-10.8)
--- NOTE | 2016-10-03 08:26 | PN- Housestaff ---
SHANIQUA RADFORD,[facility] 10/03/16 0826: Subjective Follow-up For: Follow-up For: Community-acquired pneumonia Sepsis Subjective: Patient was seen and examined today, vital signs are stable, no over night events reported by the nurse. No new complaint. Review of Systems Constitutional: Reports: see HPI. Objective Last 24 Hrs of Vital Signs/I&O Vital Signs Date Time Temp Pulse Resp B/P Pulse O2 O2 Flow FiO2 Ox Delivery Rate 10/03 0806 93 Room Air Room Air 10/03 0639 98.7 84 20 146/80 95 Room Air 10/03 0000 Room Air 10/02 2315 105 162/74 10/02 2210 99.3 119 19 178/80 93 10/02 2101 94 Room Air 10/02 1659 92 Room Air 10/02 1600 94 Room Air 10/02 1436 98.6 101 20 142/78 93 Room Air 10/02 1150 94 Room Air Room Air Intake & Output 10/03 1600 10/03 0800 10/03 0000 Intake Total 120 Output Total 325 Balance -325 120 Intake, Oral 120 Output, Urine 325 Physical Exam General Appearance: Alert, Cooperative, No Acute Distress Skin: No Rashes, No Breakdown, No Significant Lesion HEENT: Atraumatic, PERRLA, EOMI, Mucous Membr. moist/pink Neck: Supple Cardiovascular: Regular Rate, Normal S1, Normal S2, No Murmurs Lungs: Clear to Auscultation, Normal Air Movement Abdomen: Normal Bowel Sounds, Soft, No Tenderness Neurological: Normal Gait, Normal Speech, Strength at 5/5 X4 Ext, Normal Tone, Sensation Intact, Cranial Nerves 3-12 NL, Reflexes 2+ Extremities: No Clubbing, No Cyanosis, No Edema, Normal Pulses, swelling of right ankle Assessment/Plan Assessment: Assessment: Mr. Dawkins is 71-year-old male with past medical history significant for Alzheimer's, colon cancer, hypertension who presents with chief complaint of shortness of breath. Chest x-ray 09/29/16 IMPRESSION: Multiple small nodular opacities in the right upper lobe new since prior chest x-ray. CT of chest would be helpful for further assessment. CTA 09/29/16 IMPRESSION: 1. No evidence of pulmonary embolism. 2. Marked emphysematous changes of lung with underlying parenchymal architectural deformity primarily affecting the upper lobes. 2. Patchy peripheral opacity in left upper lobe concerning for an acute infiltrate. CT head 10/01/16 IMPRESSION: There are scattered chronic small vessel ischemic changes within the periventricular white matter. No evidence of acute territorial infarct or hemorrhage. Sphenoid sinus disease. Chest CT 10/01/16 IMPRESSION: Diffuse emphysematous changes of both lungs with bullous findings in both upper lobe worse in the left. Chronic condition lung changes are seen bilaterally laterally. There is a left lower lobe and left upper lobe airspace/pneumonic consolidation which appear new. Bilateral perihilar patchy opacities are stable. Plan #Rapid response -Rapid response was called this morning -Patient was unresponsive however his vital signs remained stable and blood glucose level within normal -CT head and CT chest was obtained reveled new airspace consolidation of left lower lobe -EKG, troponin, ABG are within normal -Patient received 1 dose of Seroquel 25 mg last night upon agitation, mostly this linked to the unresponsiveness this morning -Patient was given 0.4 mg IV Narcan -Avoid Seroquel and other benzodiazepines in case of agitation -Patient was evaluated later in the day, he is alert and appropriately responsive to simple commands #Community-acquired pneumonia -Patient presented with fever, cough -Patient met criteria for sepsis (temperature of 101.6, WBC 18.6, tachycardia, tachypnea) with focus of infection lung -Lactic acid on admission 2.8, trended down to 0.9 -ABG on admission within normal -Patient received IVF -Continue ceftriaxone and erythromycin IV Day #5 -We'll discharge patient on azithromycin and Vantin -Continue TRC -Continue Mucinex -Flu rapid test negative -Blood culture negative so far -Swallowing evaluation is normal #Dementia: -Continue home medication Namenda, Mirtazapine, Melatonin, Sertraline -Continue trazodone to 12.5 mg at bedtime Full code Regular diet DVT prophylaxis Lovenox To be discharged today Problem List: 1. Pneumonia Pain Ratin Pain Location: None Pain Goal: Pain 4 or less Pain Plan: Mild pain pathway Tomorrow's Labs & Rationales: None CUCA BUENO MD 10/03/16 1357: Attending Review Statement Attending Statement Attending MD Statement: examined this patient, discuss w/resident/PA/AUDIO VISUAL TECHNICIAN, agreed w/resident/PA/AUDIO VISUAL TECHNICIAN, reviewed EMR data (avail), discussed with nursing, discussed with case mgmt, amended to note Attending Assessment/Plan: The patient was seen and discussed with house staff. Agree with plan of care. OK to discharge to home today.
[2016-10-03] MEDS ORDERED: AZITHROMYCIN250 M1 PO (11:57)
[2016-10-03] MEDS ORDERED: NAPROXEN500 M2 PO (11:58)
--- NOTE | 2016-10-03 12:00 | Patient Discharge Instructions ---
Discharge Instructions General Discharge Information Special Instructions: -Please follow up with your primary care physician one week after discharge Acute Coronary Syndrome Inclusion Criteria At DC or during hospital stay patient has or had the following: ACS DIAGNOSIS No Discharge Core Measures Meds if any: Prescribed or Continued at Discharge Meds if any: NOT Prescribed or Continued at Discharge Congestive Heart Failure Inclusion Criteria At DC or during hospital stay patient has or had the following: CHF DIAGNOSIS No Discharge Core Measures Meds if any: Prescribed or Continued at Discharge Meds if any: NOT Prescribed or Continued at Discharge Cerebrovascular accident Inclusion Criteria At DC or during hospital stay patient has or had the following: CVA/TIA Diagnosis No Discharge Core Measures Meds if any: Prescribed or Continued at Discharge Meds if any: NOT Prescribed or Continued at Discharge Venous thromboembolism Inclusion Criteria VTE Diagnosis No VTE Type NONE VTE Confirmed by (Test) CT CHEST ANGIOGRAM Discharge Core Measures - Per Current guidelines, there needs to be overlap - treatment for the first 5 days of Warfarin therapy. - If discharged on Warfarin prior to 5 days of - overlap therapy, the patient will need to be - assessed for post discharge needs including - *Post discharge parental anticoagulation - *Warfarin and/or parental anticoagulation education - *Follow up date to check INR post discharge At least 5 days overlap therapy as Inpatient Yes Meds if any: Prescribed or Continued at Discharge Note: Overlap Therapy is Warfarin and Anticoagulant Meds if any: NOT Prescribed or Continued at Discharge
--- NOTE | 2016-10-03 22:52 | Discharge Summary ---
Visit Information Visit Dates Admission Date: 09/29/16 Discharge Date: 10/03/16 Hospital Course Course Attending Physician: CUCA BUENO MD Primary Care Physician: GAYLE RADFORD,[facility] Hospital Course: Mr. Dawkins is 71-year-old male with past medical history significant for Alzheimer's, colon cancer, hypertension who presents with chief complaint of shortness of breath. Prior to admission, patient had "cold and congestion" that failed [id number] medication, symptoms gotten worse and patient started to have shortness of breath and altered mental status with baseline of dementia, patient was brought to ED by live-in partner Ms. Flannery for evaluation. ED workup showed: Vitals: 101, 130, 22, 156/70, 92. ABG showed: PH 7.44, PCO2 33, O2 84, bicarbonate 22 CBC showed white count 18.5, hemoglobin 15.5, hematocrit 46.6, platelet 286 BEP within normal limits, lactic acid first 2.8 then trended down. Calcium 10.5. Chest x-ray 09/29/16 IMPRESSION: Multiple small nodular opacities in the right upper lobe new since prior chest x-ray. CT of chest would be helpful for further assessment. CTA 09/29/16 IMPRESSION: 1. No evidence of pulmonary embolism. 2. Marked emphysematous changes of lung with underlying parenchymal architectural deformity primarily affecting the upper lobes. 2. Patchy peripheral opacity in left upper lobe concerning for an acute infiltrate. CT head 10/01/16 IMPRESSION: There are scattered chronic small vessel ischemic changes within the periventricular white matter. No evidence of acute territorial infarct or hemorrhage. Sphenoid sinus disease. Chest CT 10/01/16 IMPRESSION: Diffuse emphysematous changes of both lungs with bullous findings in both upper lobe worse in the left. Chronic condition lung changes are seen bilaterally laterally. There is a left lower lobe and left upper lobe airspace/pneumonic consolidation which appear new. Bilateral perihilar patchy opacities are stable. Plan #Community-acquired pneumonia -Patient presented with fever, cough -Patient met criteria for sepsis on admission (temperature of 101.6, WBC 18.6, tachycardia, tachypnea) with focus of infection pneumonia -Lactic acid on admission 2.8, trended down to 0.9 -ABG on admission within normal -Patient received IVF -Symptomatic relief, Mucinex and TRC -Flu rapid test negative -Blood culture negative -Sputum culture positive for yeast mostly contamination -Swallowing evaluation was normal -Ceftriaxone and erythromycin IV -Patient was stable for discharge and was discharged on azithromycin and Vantin #Dementia: We continued home medication -Namenda, Mirtazapine, Melatonin, Sertraline -Patient was unresponsive after receiving a dose of Seroquel upon agitation -CT head was negative for acute changes -Patient received 1 dose of Narcan -We decreased trazodoneto 12.5 mg at bedtime -Avoid narcotics Full code Regular diet DVT prophylaxis Lovenox To be discharged today Allergies: Coded Allergies: NO KNOWN ALLERGIES (06/05/12) Disposition Summary Disposition Principal Diagnosis: Community-acquired pneumonia Additional Diagnosis: Dementia Discharge Disposition: home health services Discharge Instructions General Discharge Information Code Status: Full Code Patient's Diet: Regular diet Patient's Activity: As tolerated Follow-Up Instructions/Appts: Please follow-up with your primary care physician within 1 week after discharge Medications at Discharge Discharge Medications: Continue taking these medications: Memantine HCl (Namenda XR) 28 MG CAP.SPR.24 1 Capsule ORAL DAILY Qty = 30 Comments: Last Taken: 10/03/16 Time: 9:30 Sertraline HCl (Sertraline HCl) 50 MG TABLET 1 Tablet ORAL DAILY Qty = 90 Comments: Last Taken: 10/02/16 Time: 9:30 AM Mirtazapine (Mirtazapine) 7.5 MG TABLET 1 Tablet ORAL DAILY Qty = 30 Comments: Last Taken: 10/02/16 Time: 9 PM Trazodone HCl (Trazodone HCl) 50 MG TABLET 1 Tablet ORAL Every night as needed for SLEEP Qty = 30 Comments: NOT GIVEN Melatonin (Melatonin) 5 MG TABLET 1 Tablet ORAL Every night Comments: Last Taken: 10/02/16 Time: 9 PM Multivitamin (Men's Multi-Vitamin) 1 EACH TABLET 1 Tablet ORAL DAILY Comments: NOT GIVEN Start taking the following new medications: Naproxen (Naproxen) 500 MG TABLET 500 Milligram ORAL TWICE DAILY Qty = 10 No Refills Comments: Last Taken: 10/03/16 Time: 9: 30 AM Azithromycin (Azithromycin) 250 MG TABLET 1 Dose Pack ORAL DAILY Qty = 2 No Refills Instructions: 2 the first day followed by 1 for days 2-5 Comments: Last Taken: 10/03/16 Time: 9:30 AM Copies To: GAYLE RADFORD,[facility] Attending Review Statement Documenting Attending: CUCA BUENO MD Other Findings: The patient met criteria for sepsis on admission as noted in the above summary with pulmonary source (pneumonia) of infection. Agree with the plan of care as outlined.
== END 2016-10-03 13:47 | disposition home health service (06) | DRG 871 ==
LOC: ENRESERVDT → ENRESERVTM → ERH 14:23 → ERHI 19:13 → ENPENDDIS 19:13 → 2NB 19:13
PROVIDERS: Internal Medicine Hematology & Oncology; Internal Medicine Interventional Cardiology; Physician Assistant; Student in an Organized Health Care Education/Training Program; ADMIT Internal Medicine
DX: A41.9 Sepsis, unspecified organism (principal); J18.9 Pneumonia, unspecified organism; J96.01 Acute respiratory failure with hypoxia; E87.3 Alkalosis; G30.9 Alzheimer's disease, unspecified; F02.80 Dementia in other diseases classified elsewhere, unspecified severity, without behavioral disturbance, psychotic disturbance, mood disturbance, and anxiety; Z85.038 Personal history of other malignant neoplasm of large intestine; I10 Essential (primary) hypertension; Z87.891 Personal history of nicotine dependence; E78.5 Hyperlipidemia, unspecified
CPT/HCPCS: 2NBSP; 36415; 81003; 82436; 87040; 87070; 87071; 87449; 87450; 87804; 87804-59; 93005; 93010; 94799; 96361; 96365; 96366; 96375; 97116-GO; 97161-GP; 97530-GO; 99291; J0131; J0456; J0696; J1650; J2310; J2405; J7042; J7060

== ENCOUNTER 2016-10-04 13:22 | Emergency (ER) | payer OTHER ==
[~2016-10-04] VITALS: Ht 182.9 cm; Wt 81.6 kg
[~2016-10-04 13:22] MED LIST changes: +ASPIRIN81 M4 PO; +AZITHROMYCIN250 M1 PO; +MELATONIN5 M7 PO; +MEN'S MULTI-VI1 EACH PO; +MIRTAZAPINE7.5 M1 PO; +NAMENDA XR28 M1 PO; +NAPROXEN500 M2 PO; +SERTRALINE HCL50 MG PO; +TRAZODONE HCL50 M1 PO
--- NOTE | 2016-10-04 13:27 | ED GENERAL ADULT ---
History of Present Illness General Chief Complaint: Altered Mental Status Stated Complaint: BIBA GEN WEAKNESS,AMS Source: family, old records, EMS Exam Limitations: dementia Vital Signs & Intake/Output Vital Signs & Intake/Output Vital Signs Date Time Temp Pulse Resp B/P Pulse O2 O2 Flow FiO2 Ox Delivery Rate 10/04 1441 98.2 76 18 149/80 96 Room Air 10/04 1331 79 18 125/72 96 Room Air Allergies Coded Allergies: NO KNOWN ALLERGIES (06/05/12) Reconcile Medications Azithromycin 250 MG TABLET 1 DP PO DAILY lung infection 2 the first day followed by 1 for days 2-5 Melatonin 5 MG TABLET 1 TAB PO QPM SLEEP (Reported) Memantine HCl (Namenda XR) 28 MG CAP.SPR.24 1 CAP PO DAILY DEMENTIA (Reported ) Mirtazapine 7.5 MG TABLET 1 TAB PO DAILY DEPRESSION (Reported) Multivitamin (Men's Multi-Vitamin) 1 EACH TABLET 1 TAB PO DAILY SUPPLEMENT ( Reported) Naproxen 500 MG TABLET 500 MG PO BID GOUT Sertraline HCl 50 MG TABLET 1 TAB PO DAILY MENTAL HEALTH (Reported) Trazodone HCl 50 MG TABLET 1 TAB PO QPM PRN SLEEP (Reported) Triage Nurses Notes Reviewed? yes HPI: Patient is discharged from the hospital earlier history afternoon after admission for pneumonia. Patient went home and was in his usual mental state of health. Patient has dementia so is unable provide any history. Patient's states that yesterday he was up and walking and talking and eating which is normal for him. She states that when he first got home from the hospital is tired and took a 2 hour nap but then when he woke up everything was "back to normal." This morning the patient was very lethargic and tired and fell asleep and has not woken up since. This is an acute change in his mental status was department for evaluation. Past History Travel History Traveled to [place] past 21 day No Medical History Any Pertinent Medical History? 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 No Review of Systems Review of Systems Constitutional: Reports: see HPI. Physical Exam Physical Exam General Appearance: mild distress Head: atraumatic Eyes: Bilateral: PERRL, EOMI. Neck: normal inspection, supple Respiratory: no respiratory distress, rhonchi Cardiovascular: regular rate/rhythm, normal peripheral pulses Gastrointestinal: normal bowel sounds, soft, non-tender, no organomegaly Extremities: normal inspection, normal capillary refill Skin: intact, normal color, warm/dry Core Measures ACS in differential dx? No CVA/TIA Diagnosis: No Severe Sepsis Present: No Septic Shock Present: No Progress Differential Diagnoses I considered the following diagnoses in my evaluation of the patient: [ Electrolyte Abnormality, UTI, pneumonia] Plan of Care: Orders Procedure Date/time Status CASE MANAGEMENT CONSULT 10/04 1503 Active ARTERIAL BLOOD GAS (GEN) 10/04 1329 Complete Telemetry/Dental Assistant Teacher 10/04 1329 Active Straight Cath 10/04 1329 Active URINE DRUGS OF ABUSE 10/04 1329 Complete URINALYSIS 10/04 1329 Complete TROPONIN LEVEL 10/04 1329 Complete COMPREHENSIVE METABOLIC PANEL 10/04 1329 Complete CBC WITHOUT DIFFERENTIAL 10/04 1329 Complete EKG 10/04 1329 Active Laboratory Tests 10/04/16 1412: Anion Gap 7, Estimated GFR > 60, BUN/Creatinine Ratio 22.7, Glucose 84, Calcium 10.6 H, Total Bilirubin 0.6, AST 24, ALT 35, Alkaline Phosphatase 76, Troponin I < 0.01, Total Protein 6.6, Albumin 3.2 L, Globulin 3.4, Albumin/Globulin Ratio 0.9 L 10/04/16 1410: pH 7.42, pCO2 35, pO2 73 L, HCO3 22, ABG O2 Sat (Measured) 95.0 L, P-50 (Temp Corrected) N, Carboxyhemoglobin 1.2 L, O2 Concentration % .21, O2 Delivery Method RA, Phlebotomy Draw Site RIGHT RADIAL 10/04/16 1337: CBC w Diff NO MAN DIFF REQ, RBC 4.69 L, MCV 87.0, MCH 29.5, RDW 13.5, MPV 7.8, Gran % 81.3 H, Lymphocytes % 10.0 L, Monocytes % 5.0, Eosinophils % 3.0, Basophils % 0.7, Absolute Granulocytes 10.4 H, Absolute Lymphocytes 1.3, Absolute Monocytes 0.6, Absolute Eosinophils 0.4, Absolute Basophils 0.1, PUBS MCHC 34.0 10/04/16 1335: Urine Opiates Screen < 100.00, Methadone Screen 45, Barbiturate Screen < 60, Ur Phencyclidine Scrn < 6.00, Amphetamines Screen < 100, U Benzodiazepines Scrn < 85, Urine Cocaine Screen < 50, Urine Cannabis Screen < 5.00, Urinalysis LIGHT H , Urine Color YEL, Urine Clarity CLEAR, Urine pH 6.0, Ur Specific [place] 1.025, Urine Protein NEG, Urine Ketones NEG, Urine Nitrite NEG, Urine Bilirubin NEG, Urine Urobilinogen 0.2, Ur Leukocyte Esterase NEG, Ur Microscopic SEDIMENT EXAMINED, Urine RBC RARE, Ur Epithelial Cells FEW, Urine Bacteria FEW H, Hyaline Casts 1-3 H, Urine Mucus MOD H, Urine Hemoglobin TRACE-INTACT H, Urine Glucose NEG Diagnostic Imaging: Viewed by Me: Radiology Read. Discussed w/RAD: Radiology Read. Radiology Impression: PATIENT: ALBINO CHAMPION PRESENT AGE: 71 PATIENT ACCOUNT NO: [id number] : 44 LOCATION: [facility] ORDERING PHYSICIAN: MARCIA GUNTER MD SERVICE DATE: 10/04/16 EXAM TYPE: CAT - CT HEAD WO IV CONTRAST EXAMINATION: CT HEAD WITHOUT CONTRAST CLINICAL INFORMATION: Change in mental status. 10/01/2016, 11/20/2014. COMPARISON: None TECHNIQUE: Contiguous axial imaging was performed from the skull base to vertex without intravenous administration of contrast. DLP: 601 mGy-cm FINDINGS: There is no evidence of acute intracranial hemorrhage or territorial infarction. No abnormal mass effect or midline shift is seen. Pereyra to white matter differentiation is well preserved. No extra-axial fluid collections are identified. The ventricles are normal in size for the patient's age. There is no abnormal attenuation within the brain parenchyma. The osseous structures and soft tissues are normal. The mastoid air cells and visualized portions of the paranasal sinuses are well aerated. The petrous apices are pneumatized and clear. IMPRESSION: No acute intracranial pathology. DICTATED BY: MILLIE ANTON MD DATE/TIME DICTATED:10/04/161533 FISCAL ANALYST:ALVAREZ DATE/TIME TRANSCRIBED:10/04/161533 CONFIDENTIAL, DO NOT COPY WITHOUT APPROPRIATE AUTHORIZATION. <Electronically signed in Other Vendor System> SIGNED BY: MILLIE ANTON MD 10/04/16 1542 CXR Impression: PATIENT: ALBINO CHAMPION PRESENT AGE : 71 PATIENT ACCOUNT NO: [id number] : 44 LOCATION: [facility] ORDERING PHYSICIAN: MARCIA GUNTER MD SERVICE DATE: 10/04/16 EXAM TYPE: RAD - XRY-PORTABLE CHEST XRAY EXAMINATION: XR PORTABLE CHEST CLINICAL INFORMATION: Pneumonia COMPARISON: 09/29/2016 TECHNIQUE: Portable AP view of the chest was obtained. FINDINGS: Chronic interstitial lung changes are redemonstrated with more focal airspace opacity involving the left mid upper lung field and right perihilar and peripheral lung zones. No pneumothorax is identified. No clear pleural effusion is identified. The cardiomediastinal silhouette appears stable. IMPRESSION: Airspace opacities in the left upper lobe and right perihilar and peripheral lung concerning for an underlying infiltrate superimposed on chronic lung changes. DICTATED BY: ALBINO LAI MD DATE/TIME DICTATED:10/04/161407 FISCAL ANALYST:FINN DATE/TIME TRANSCRIBED:10/04/161407 CONFIDENTIAL, DO NOT COPY WITHOUT APPROPRIATE AUTHORIZATION. <Electronically signed in Other Vendor System> SIGNED BY: ALBINO LAI MD 10/04/16 1415 Initial ED EKG: NSR, no ST T wave changes Prior EKG: unchanged Comments: Patient is now awake but is nonverbal and his states that this is a change from his usual. Laboratory data and radiological findings were discussed with the . Patient is more awake. She feels comfortable taking him home. Departure Departure Disposition: HOME OR SELF CARE Condition: Stable Clinical Impression Primary Impression: Dementia Referrals: CESAR ARAUJO MD (PCP/Family) Additional Instructions: Return if symptoms worsen or for any concerns. Departure Forms: Customer Survey General Discharge Information Critical Care Note Critical Care Note Critical Care Time: non-applicable
[2016-10-04 13:44] LABS: ABSOLUTE LYMPH COUNT 1.3 /CUMM (1.2-3.4)
[2016-10-04 14:02] LABS: ABSOLUTE BASOPHIL COUNT 0.1 /CUMM (0.0-0.2); ABSOLUTE EOSINOPHIL COUNT 0.4 /CUMM (0.0-0.7); ABSOLUTE GRANULOCYTE CT 10.4 /CUMM (1.4-6.5); ABSOLUTE MONOCYTE COUNT 0.6 /CUMM (0.10-0.60); BASOPHIL % 0.7 % (0.0-2.0); GRANULOCYTE % 81.3 % (42.2-75.2); HEMATOCRIT 40.8 % (42-52); MEAN CORPUSCULAR HGB 29.5 PG (27.0-31.0); MEAN PLATELET VOLUME 7.8 FL (7.4-10.4); PLATELET COUNT 368 /CUMM (130-400); RBC DISTRIBUTION WIDTH 13.5 % (11.5-14.5); RED BLOOD CELL CT 4.69 /CUMM (4.70-6.10); WHITE BLOOD CELL COUNT 12.8 /CUMM (4.8-10.8)
--- NOTE | 2016-10-04 14:15 | RADIOLOGY REPORT ---
EXAMINATION: XR PORTABLE CHEST CLINICAL INFORMATION: Pneumonia COMPARISON: 09/29/2016 TECHNIQUE: Portable AP view of the chest was obtained. FINDINGS: Chronic interstitial lung changes are redemonstrated with more focal airspace opacity involving the left mid upper lung field and right perihilar and peripheral lung zones. No pneumothorax is identified. No clear pleural effusion is identified. The cardiomediastinal silhouette appears stable. IMPRESSION: Airspace opacities in the left upper lobe and right perihilar and peripheral lung concerning for an underlying infiltrate superimposed on chronic lung changes.
--- NOTE | 2016-10-04 15:42 | CT SCAN REPORT ---
EXAMINATION: CT HEAD WITHOUT CONTRAST CLINICAL INFORMATION: Change in mental status. 10/01/2016, 11/20/2014. COMPARISON: None TECHNIQUE: Contiguous axial imaging was performed from the skull base to vertex without intravenous administration of contrast. DLP: 601 mGy-cm FINDINGS: There is no evidence of acute intracranial hemorrhage or territorial infarction. No abnormal mass effect or midline shift is seen. Pereyra to white matter differentiation is well preserved. No extra-axial fluid collections are identified. The ventricles are normal in size for the patient's age. There is no abnormal attenuation within the brain parenchyma. The osseous structures and soft tissues are normal. The mastoid air cells and visualized portions of the paranasal sinuses are well aerated. The petrous apices are pneumatized and clear. IMPRESSION: No acute intracranial pathology.
[2016-10-04 16:28] VITALS: BP 118/66
== END 2016-10-04 16:36 ==
LOC: ERH 13:22
PROVIDERS: Emergency Medicine
DX: F03.90 Unspecified dementia, unspecified severity, without behavioral disturbance, psychotic disturbance, mood disturbance, and anxiety (principal); R53.1 Weakness; I10 Essential (primary) hypertension
CPT/HCPCS: 80307; 81001; 93005; 93010

== ENCOUNTER 2016-12-22 15:54 | Emergency (ER) | payer OTHER ==
[~2016-12-22] VITALS: Ht 185.4 cm; Wt 81.6 kg
[2016-12-22 15:59] VITALS: BP 149/79
--- NOTE | 2016-12-22 16:40 | ED MVC/FALL/TRAUMA COMPLAINT ---
History of Present Illness General Chief Complaint: Fall Stated Complaint: AMS Source: patient, family Exam Limitations: dementia Vital Signs & Intake/Output Vital Signs & Intake/Output Vital Signs Date Time Temp Pulse Resp B/P B/P Pulse O2 O2 Flow FiO2 Mean Ox Delivery Rate 12/22 1559 97.0 70 18 149/79 96 Room Air Allergies Coded Allergies: NO KNOWN ALLERGIES (06/05/12) Reconcile Medications Aspirin (Ecotrin*) 81 MG TABLET.DR 1 TAB PO DAILY HEART/BLOOD (Reported) Melatonin 5 MG TABLET 1 TAB PO QPM SLEEP (Reported) Memantine HCl (Namenda XR) 28 MG CAP.SPR.24 1 CAP PO DAILY DEMENTIA (Reported ) Multivitamin (Men's Multi-Vitamin) 1 EACH TABLET 1 TAB PO DAILY SUPPLEMENT ( Reported) Naproxen 375 MG TABLET 1 TAB PO BID PRN PAIN with food Sertraline HCl 50 MG TABLET 1 TAB PO DAILY MENTAL HEALTH (Reported) Trazodone HCl 50 MG TABLET 1 TAB PO QPM PRN SLEEP (Reported) Triage Note: PT TO TRIAGE WITH SPOUSE , PT HAS ALZHEIMERS AND IS MOSTLY NON VERBAL, STATES THAT PT SLIPPED YESTERDAY AND CAUGHT SELF BUT SINCE THEN HIS BACK AND NECK HURT Triage Nurses Notes Reviewed? yes Onset: Gradual Duration: gone now Timing: recent history Severity: mild Severity Numbers: 3 HPI: Patient is a 71-year-old male with a past medical history of Alzheimer's dementia who presents to emergency room with bassem and bassem's daughter and which they live in a private residence together and the 24-hour caregivers were concerned of patient having complaints in the past 72 hours of back and neck pain. It was supervised the patient was ambulating down the steps yesterday with slippers and lost his balance and stumbled on his feet however patient denies any traumatic event or fall patient has been administered Tylenol for pain. Family is also concerned of patient's worsening dementia however patient states that the power of real estate attorney patient's sister is currently evaluating patient for placement. No change in mental status per family patient is at baseline. (OSVALDO OWENS,MARVIN) Past History Travel History Traveled to [place] past 21 day No Medical History Any Pertinent Medical History? 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 No (MARVIN JONES) Review of Systems Review of Systems Constitutional: Reports: no symptoms. Eyes: Reports: no symptoms. Ears, Nose, Throat, Mouth: Reports: no symptoms. Respiratory: Reports: no symptoms. Cardiovascular: Reports: no symptoms. Gastrointestinal/Abdominal: Reports: no symptoms. Genitourinary: Reports: no symptoms. Musculoskeletal: Reports: see HPI, back pain, neck pain. Skin: Reports: no symptoms. Neurological/Psychological: Reports: no symptoms. All Other Systems: Reviewed and Negative (MARVIN JONES) Physical Exam Physical Exam General Appearance: no apparent distress, alert, comfortable Head: atraumatic Eyes: Bilateral: normal appearance, PERRL, EOMI. Ears, Nose, Throat, Mouth: moist mucous membrane, Tympanic normal Neck: normal inspection, supple, no midline tenderness Respiratory: normal breath sounds, chest non-tender, no respiratory distress Cardiovascular: regular rate/rhythm Peripheral Pulses: 2+ radial (R), 2+ radial (L) Comments: HEENT: Normal EENT exam, extraocular motion intact, no nystagmus. Pupils equally round and reactive to light and accommodation. Nose is atraumatic. External auditory canal and Tympanic membranes clear. Pharynx normal. No swelling or edema. Neck: Supple, no lymphadenopathy, normal range of motion without pain or tenderness Back: Nontender, no CVA tenderness. Cardiovascular: Regular rate and rhythms no murmurs rubs or gallops, normal JVP Respiratory: Chest nontender. No respiratory distress.breath sounds clear to auscultation bilaterally Abdomen: Soft, nontender nondistended, no appreciable organomegaly. Normal bowel sounds. No ascites Extremity: No edema, no calf tenderness to palpation, normal and equal pulses. Bilateral upper extremity and lower extremity myotomes dermatomes intact Neuro: Alert, motor sensory normal, cranial nerves II through XII grossly intact. Skin: No appreciable rash on exposed skin, skin is warm and dry. Psych: Mood and affect is normal, memory and judgment is normal. Core Measures ACS in differential dx? No Severe Sepsis Present: No Septic Shock Present: No (MARVIN JONES) Progress Differential Diagnosis: aoritic dissection, abd injury, C/T/L spine injury, ext injury, ICH, pelvis injury, pnemothorax, spinal cord injury Plan of Care: Orders Procedure Date/time Status CASE MANAGEMENT CONSULT 12/22 1704 Active On initial examination patient had unremarkable physical exam findings no signs of zoster Patient on palpation of cervical thoracic and lumbar spine he has no point tenderness. Patient follows all commands appropriately Patient was pleasantly demented and there are no neurological impairments at this time Patient also was evaluated by case management for possible home health aide and physical therapy. Patient had normal steady gait in the emergency room. Again family denies any traumatic events or fall or mechanism of injury. Patient was initially ordered CT scan of the head and cervical spine due to history of being limited from dementia however patient adamantly refused to obtain the CT scan and it was attempted on many occasions Discussed disposition plan with Dr. LOPEZ who agrees Family members were strongly advised to present patient to the emergency room if symptoms worsen and they will comply Patient had normal steady gait upon discharge (MARVIN JONES) Departure Departure Disposition: HOME OR SELF CARE Condition: Stable Clinical Impression Primary Impression: Low back pain Secondary Impressions: Neck pain Referrals: GAYLE RADFORD,CESAR (PCP/Family) Additional Instructions: As discussed begin the prescription Naprosyn as directed for pain and inflammation. If symptoms worsen return to the emergency room. YOU will receive a phone call tomorrow for home health services. Continue home medications as directed Departure Forms: Customer Survey General Discharge Information Prescriptions: Current Visit Scripts Naproxen 1 TAB PO BID PRN PAIN #20 TAB with food (MARVIN JONES) PA/FEED MILL LAB TECHNICIAN Co-Sign Statement Statement: ED Attending supervision documentation- [X] I saw and evaluated the patient. I have also reviewed all the pertinent lab results and diagnostic results. I agree with the findings and the plan of care as documented in the PA's/FEED MILL LAB TECHNICIAN's documentation. [] I have reviewed the ED Record and agree with the PA's/FEED MILL LAB TECHNICIAN's documentation. [] Additions or exceptions (if any) to the PAs/FEED MILL LAB TECHNICIAN's note and plan are summarized below: [] (NEHEMIAH LOPEZ DO)
[2016-12-22] MEDS ORDERED: ASPIRIN EC81 M1 PO (17:38)
[2016-12-22] MEDS ORDERED: NAPROXEN375 M2 PO (17:39)
== END 2016-12-22 19:02 ==
LOC: ERH 15:54
DX: M54.5 Low back pain (principal); M54.2 Cervicalgia

== ENCOUNTER 2016-12-23 15:52 | Emergency (ER) | payer OTHER ==
[~2016-12-23] VITALS: Ht 180.3 cm; Wt 81.6 kg
[~2016-12-23 15:52] MED LIST changes: +ASPIRIN EC81 M1 PO; +NAPROXEN375 M2 PO
--- NOTE | 2016-12-23 15:56 | ED GENERAL ADULT ---
See Addendum History of Present Illness General Chief Complaint: General Adult Stated Complaint: INCREASED CONFUSION/AGGRESSION X MO Source: patient, family Exam Limitations: confusion, dementia Vital Signs & Intake/Output Vital Signs & Intake/Output Vital Signs Date Time Temp Pulse Resp B/P B/P Pulse O2 O2 Flow FiO2 Mean Ox Delivery Rate 12/23 1856 Room Air Room Air 12/23 185 96.8 57 15 130/72 95 Room Air Room Air 12/23 1556 98.7 97 15 152/87 95 Room Air Room Air Allergies Coded Allergies: NO KNOWN ALLERGIES (06/05/12) Reconcile Medications Aspirin (Ecotrin*) 81 MG TABLET.DR 1 TAB PO DAILY HEART/BLOOD (Reported) Melatonin 5 MG TABLET 1 TAB PO QPM SLEEP (Reported) Memantine HCl (Namenda XR) 28 MG CAP.SPR.24 1 CAP PO DAILY DEMENTIA (Reported ) Multivitamin (Men's Multi-Vitamin) 1 EACH TABLET 1 TAB PO DAILY SUPPLEMENT ( Reported) Naproxen 375 MG TABLET 1 TAB PO BID PRN PAIN with food Sertraline HCl 50 MG TABLET 1 TAB PO DAILY MENTAL HEALTH (Reported) Trazodone HCl 50 MG TABLET 1 TAB PO QPM PRN SLEEP (Reported) Triage Nurses Notes Reviewed? yes HPI: 71 yo M PMH HTN, Dementia presenting with altered mental status, agitation. Per EMS patient's significant other called EMS for threatening behavior and agression, concerned patient is confused, present for the last month and progressive. Patient is only able to provide limited history, states he is in ED "because my ex- is a liar", disorganized and tangential, perseverating on ex -, patient unable to provide coherent history. Denies fevers, chest pain, SOB, palpitations, nausea, abdominal pain, headache, neck pain, weakness, numbness. (ZAYDA RADFORD,RAYMOND) Past History Travel History Traveled to [place] past 21 day No Medical History Any Pertinent Medical History? 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 Yes (RAYMOND PRIEST MD) Review of Systems Review of Systems Constitutional: Denies: fever. Respiratory: Denies: short of breath. Cardiovascular: Denies: chest pain. GI: Denies: nausea. Neurological/Psychological: Reports: confusion. (ZAYDA RADFORD,RAYMOND) Physical Exam Physical Exam General Appearance: well developed/nourished, no apparent distress, alert, awake Head: atraumatic Eyes: Bilateral: PERRL, EOMI. Ears, Nose, Throat: normal pharynx, normal ENT inspection Neck: normal inspection, full range of motion Respiratory: normal breath sounds, no respiratory distress Cardiovascular: regular rate/rhythm, normal peripheral pulses Gastrointestinal: normal bowel sounds, soft, non-tender Comments: Neurologic: Oriented to person and place, "2012", crainal nerves II-XII intact, no gross motor or sensory deficits Psych: Agitated, tangential, disorganized, paranoid ideation Core Measures ACS in differential dx? Yes CVA/TIA Diagnosis: No Severe Sepsis Present: No Septic Shock Present: No (ZAYDA RADFORD,RAYMOND) Progress Differential Diagnoses I considered the following diagnoses in my evaluation of the patient: [ Psychiatric disease, Dementia, Infection, metabolic derrangement, ICH] Plan of Care: Orders Procedure Date/time Status Add-on Test (ER Only) 12/23 1929 Active Add-on Test (ER Only) 12/24 1927 Active URINE DRUG SCREEN FOR ER ONLY 12/24 1927 Active ED CRISIS PSYCH CONSULT 12/23 1852 Active URINALYSIS 12/23 1714 Active ETHANOL 12/23 1700 Complete HEPATIC FUNCTION PANEL 12/23 1642 Complete CBC WITHOUT DIFFERENTIAL 12/23 1642 Complete BASIC METABOLIC PANEL 12/23 1642 Complete EKG 12/23 1642 Active Laboratory Tests 12/23/161928: Methadone Screen Pending, Barbiturate Screen Pending, Ur Phencyclidine Scrn Pending, Amphetamines Screen Pending, U Benzodiazepines Scrn Pending, Urine Cocaine Screen Pending, Urine Cannabis Screen Pending, Urine Color Pending, Urine Clarity Pending, Urine pH Pending, Ur Specific [place] Pending, Urine Protein Pending, Urine Ketones Pending, Urine Nitrite Pending, Urine Bilirubin Pending, Urine Urobilinogen Pending, Ur Leukocyte Esterase Pending, Ur Microscopic SEDIMENT EXAMINED, Urine RBC Pending, Urine Hemoglobin Pending, Urine Glucose Pending 12/23/16 1700: Anion Gap 6, Estimated GFR > 60, BUN/Creatinine Ratio 19.0, Glucose 88, Calcium 10.6 H, Total Bilirubin 0.5, Direct Bilirubin 0.1, AST 55, ALT 68, Alkaline Phosphatase 62, Total Protein 6.2 L, Albumin 3.5, CBC w Diff NO MAN DIFF REQ, RBC 4.94, MCV 87.4, MCH 28.7, RDW 14.3, MPV 8.3, Gran % 72.6, Lymphocytes % 18.6 L, Monocytes % 6.1, Eosinophils % 2.3, Basophils % 0.4, Absolute Granulocytes 4.2, Absolute Lymphocytes 1.1 L, Absolute Monocytes 0.4, Absolute Eosinophils 0.1, Absolute Basophils 0, PUBS MCHC 32.8 L, Serum Alcohol < 10.0 Physician MDM: 71 yo M PMH HTN, Dementia presenting with altered mental status, agitation. VSS, afebrile, exam as above, neurologic exam non-focal. ECG sinus rhythm, non-ischemic. CBC, CMP unermarkable. CT head negative. UA pending. Crisis consult to evaluate for underlying psychiatric disease and reccomendations on medications for agitation. (ZAYDA RADFORD,RAYMOND) Initial ED EKG: normal sinus rhythm (RAYMOND PRIEST MD) Departure Departure Disposition: STILL A PATIENT Condition: Stable Clinical Impression Primary Impression: Agitation Referrals: CESAR ARAUJO MD (PCP/Family) Departure Forms: Customer Survey General Discharge Information (RAYMOND PRIEST MD) PA/HUMAN RESOURCES ASSOCIATE Co-Sign Statement Statement: ED Attending supervision documentation- [] I saw and evaluated the patient. I have also reviewed all the pertinent lab results and diagnostic results. I agree with the findings and the plan of care as documented in the PA's/HUMAN RESOURCES ASSOCIATE's documentation. [X] I have reviewed the ED Record and agree with the PA's/HUMAN RESOURCES ASSOCIATE's documentation. [] Additions or exceptions (if any) to the PAs/HUMAN RESOURCES ASSOCIATE's note and plan are summarized below: [] (NEHEMIAH LOPEZ DO) Critical Care Note Critical Care Note Critical Care Time: non-applicable (RAYMOND PRIEST MD)
[2016-12-23 17:15] LABS: ABSOLUTE BASOPHIL COUNT 0 /CUMM (0.0-0.2); ABSOLUTE EOSINOPHIL COUNT 0.1 /CUMM (0.0-0.7); ABSOLUTE GRANULOCYTE CT 4.2 /CUMM (1.4-6.5); ABSOLUTE LYMPH COUNT 1.1 /CUMM (1.2-3.4); ABSOLUTE MONOCYTE COUNT 0.4 /CUMM (0.10-0.60); BASOPHIL % 0.4 % (0.0-2.0); EOSINOPHIL % 2.3 % (0-5); GRANULOCYTE % 72.6 % (42.2-75.2); HEMATOCRIT 43.2 % (42-52); MEAN CORPUSCULAR HGB 28.7 PG (27.0-31.0); MEAN CORPUSCULAR HGB CONC 32.8 G/DL (33.0-37.0); MEAN CORPUSCULAR VOLUME 87.4 FL (80.0-94.0); MEAN PLATELET VOLUME 8.3 FL (7.4-10.4); PLATELET COUNT 237 /CUMM (130-400); RBC DISTRIBUTION WIDTH 14.3 % (11.5-14.5); RED BLOOD CELL CT 4.94 /CUMM (4.70-6.10); WHITE BLOOD CELL COUNT 5.8 /CUMM (4.8-10.8)
--- NOTE | 2016-12-23 17:58 | CT SCAN REPORT ---
EXAMINATION: CT HEAD WITHOUT CONTRAST CLINICAL INFORMATION: Altered mental status. COMPARISON: 10/04/2016 TECHNIQUE: Contiguous axial imaging was performed from the skull base to vertex without intravenous administration of contrast. DLP: 622 mGy-cm FINDINGS: There is no evidence of acute intracranial hemorrhage or territorial infarction. No abnormal mass effect or midline shift is seen. Pereyra to white matter differentiation is well preserved. No extra-axial fluid collections are identified. There is mild generalized prominence of the ventricles, sulci, and extra-axial CSF spaces. Attenuation within the brain parenchyma is fairly normal. No acute osseous abnormalities. There is mild mucosal thickening and a few retention cysts in the partially imaged left maxillary sinus. A small fluid level is present within the right sphenoid air cell. The nasal cavity, nasopharynx, mastoid air cells and middle ear cavities are clear. The temporomandibular joints articulate normally. The patient is edentulous. No acute soft tissue abnormalities. IMPRESSION: No acute intracranial pathology. Small fluid level in the right sphenoid air cell.
--- NOTE | 2016-12-23 22:42 | ED PSYCH CRISIS CONSULTATION ---
Crisis Consult Basic Assessment Date of Consult: 12/23/16 Responsible Person/Accompanied By: chris/jenniffer Perez Insurance Authorization: Insurance #1: Insurance name: [employer] H[employer] Phone number: Policy number: [id number] Group number: [id number] Authorization number: ED Provider: Patient's ED Provider: ZAYDA RADFORD,RAYMOND Primary Care Physician: Patient's PCP: CESAR ARAUJO MD PCP's Current Psychiatrist: none Chief Complaint: General Adult Present Illness: Pt is a 71 yo male biba to [facility] ED this afternoon due to an episode of confusion, agitation and aggression. Family reports pt is diagnosed with Alzheimers and over the past couple of months has deteriorated. They report pt has been having difficulty maintaing balance and today was the first time he acted aggressively. Although initially agitated in the ED pt calmed after receiving Seroquel and a food box. Pt said hello to access clinician but otherwise stayed non verbal and disinterested in clinician's presence while gathering information from family. Family reports he is no longer able to be cared for safely at home. The family discussed possible placement at [facility] next week. Case Management will be involved in the morning to explore more expeditated nursing care facility placement. Patient's Address: [address] [place] [address] Other Phone Number: Who Do You Live With? Other (see notes) (Girlfriend) Family/Informants Interviewed: collateral provided by jenniffer Perez. Pt is becoming more confused, agitated and difficulty maintaining balance. Pt was aggressive for the first time today. Concerned that pt can no longer be cared for safely at home. Allergies - Coded Allergies: NO KNOWN ALLERGIES (06/05/12) Current Medications - Scheduled Medications Aspirin (Ecotrin*) 81 MG TABLET. 1 TAB PO DAILY HEART/BLOOD (Reported) Entered as Reported by GISELLA NELSON on 12/22/16 1738 Melatonin 5 MG TABLET 1 TAB PO QPM SLEEP (Reported) Entered as Reported by GABRIEL MEADOWS on 09/29/16 1518 Memantine HCl (Namenda XR) 28 MG CAP.SPR.24 1 CAP PO DAILY DEMENTIA #30 ( Reported) Entered as Reported by GABRIEL MEADOWS on 09/29/16 151 Multivitamin (Men's Multi-Vitamin) 1 EACH TABLET 1 TAB PO DAILY SUPPLEMENT ( Reported) Entered as Reported by GABRIEL MEADOWS on 09/29/16 151 Last Taken: At an unknown date and time Sertraline HCl 50 MG TABLET 1 TAB PO DAILY MENTAL HEALTH #90 (Reported) Entered as Reported by GABRIEL MEADOWS on 09/29/16 151 Scheduled PRN Medications Naproxen 375 MG TABLET 1 TAB PO BID PRN PAIN #20 TAB Prescribed by MARVIN RILEY on 12/22/16 Trazodone HCl 50 MG TABLET 1 TAB PO QPM PRN SLEEP #30 (Reported) Entered as Reported by GABRIEL MEADOWS on 09/29/16 151 Laboratory Results: Laboratory Tests 12/23/16 1929: Urine Opiates Screen < 100.00, Methadone Screen < 40, Barbiturate Screen < 60, Ur Phencyclidine Scrn < 6.00, Amphetamines Screen < 100, U Benzodiazepines Scrn < 85, Urine Cocaine Screen < 50, Urine Cannabis Screen < 5.00, Urine Color YEL, Urine Clarity CLEAR, Urine pH 6.0, Ur Specific [place] 1.025, Urine Protein TRACE H, Urine Ketones NEG, Urine Nitrite NEG, Urine Bilirubin NEG, Urine Urobilinogen 0.2, Ur Leukocyte Esterase NEG, Ur Microscopic SEDIMENT EXAMINED, Urine RBC 1-3, Urine WBC 1-3 H, Ur Epithelial Cells RARE, Urine Mucus FEW, Urine Hemoglobin NEG, Urine Glucose NEG 12/23/16 1700: Anion Gap 6, Estimated GFR > 60, BUN/Creatinine Ratio 19.0, Glucose 88, Calcium 10.6 H, Total Bilirubin 0.5, Direct Bilirubin 0.1, AST 55, ALT 68, Alkaline Phosphatase 62, Total Protein 6.2 L, Albumin 3.5, CBC w Diff NO MAN DIFF REQ, RBC 4.94, MCV 87.4, MCH 28.7, RDW 14.3, MPV 8.3, Gran % 72.6, Lymphocytes % 18.6 L, Monocytes % 6.1, Eosinophils % 2.3, Basophils % 0.4, Absolute Granulocytes 4.2, Absolute Lymphocytes 1.1 L, Absolute Monocytes 0.4, Absolute Eosinophils 0.1, Absolute Basophils 0, PUBS MCHC 32.8 L, Serum Alcohol < 10.0 (KAITY UMANZOR LCSW) Past History Past Medical History Neurological: Alzheimer's disease EENT: NONE Cardiovascular: hypertension, hyperlipidemia Respiratory: NONE Gastrointestinal: colon CA Hepatic: NONE Renal: NONE Musculoskeletal: NONE Psychiatric: NONE Endocrine: NONE Blood Disorders: NONE Cancer(s): colon/rectal cancer [employer] PROFESSION[employer]/Reproductive: NONE Past Surgical History Surgical History: non-contributory Psychosocial History Strengths/Capabilities: retired; suportive family Psychiatric Treatment History Psych Treatment Psychiatric Treatment No Inpatient Treatment No Outpatient Treatment No Substance Use/Abuse History Drug Use/Abuse Substances Used/Abused No Substance Abuse Treatment Substance Abuse Treatment Past Substance Abuse [place] No Comments: no reported substance use concerns (KAITY UMANZOR LCSW) Current Mental Status Mental Status Orientation: Confused, Current situation, Place Affect: WNL Speech: Soft Neuro-vegetative: Concentration Poor, Helpless, Sleep Disturbance Behaviors Thought Process: Disorganized Thought Content: Paranoid Memory: Impaired Insight: Poor SI/HI Risk Assessment Past Suicidal Ideation/Attempts No Current Suicidal Ideation/Att No Past Homicidal Ideation/Att: No Current Homicidal Ideation/Attempts No Degree of Intent: None Risk Factors: age (under 24/over 65), chronic/serious med cond., male Lethality Ratin (mild) PTSD Checklist PTSD Done? patient declined ED Management Sitter: Yes Restraints: No (KAITY UMANZOR LCSW) DSM5/PS Stressors/Medical Prob Diagnosis' (DSM 5, Stressors, Medical): Major neurocognitive D/O due to Alzheimer Disease (F02.81) Current GAF: 25 Comments: family reports pt presenting as more confused and agitated past few months. No reports of aggression prior to today. (KAITY UMANZOR LCSW) Departure Disposition Psych Medical Clearance Date: 12/23/16 Medically Cleared at: 2144 Time Started: 2149 Time Ended: 2229 Psychiatrist Consulted: Breanna Gomez MD Date Disposition Established: 12/23/16 Time Disposition Established: 2229 Plan for Disposition - Modality: H/O pt for case management consult in the morning Rationale for Disposition: Pt presenting as more agitated and confused. Family reports concern he can't be maintained safely at home. Reportedly pt is scheduled for a [facility] admission next week. Hold pt over to receive case management consult and possibly expeditite placement at [facility] Additional Instructions: Medicate pt with Zyprexa 2.5 mg for agitation as needed. Referrals CESAR ARAUJO MD (PCP/Family) (NOÉ SARABIA,KAITY) Addendum Addendum Pt remains in a netted bed for safety. Pt presenting as more agitated and confused. Family reports concern he can't be maintained safely at home. Inpt Geriatric tx is recommended at this time. Case management will do a geriatric inpt psych bed search. (KRISTINE SARABIA,STEVAN)
[2016-12-24 15:18] VITALS: BP 141/72
== END 2016-12-24 16:24 | disposition still patient (30) ==
LOC: ERH 15:52
PROVIDERS: Student in an Organized Health Care Education/Training Program
DX: R45.1 Restlessness and agitation (principal)
CPT/HCPCS: 80307; 81001; 93005; 93010; G0463; G0480; J1200; J1630